=== PATIENT | male | born 1935 | race Caucasian/White ===

== ENCOUNTER 2023-06-18 10:29 | Emergency (ER) | payer OTHER, SELFPAY ==
[2023-06-18] VITALS (10 sets, daily range): BP systolic 138–160; BP diastolic 66–81; PULSE 87–97; RESP 18–34; TEMP 36.4; O2SAT 93–99; BMI 31.0
--- NOTE | 2023-06-18 11:05 | DI.RAD.S_ITS ---
PROCEDURE: XR CHEST 1V INDICATIONS: chest pain TECHNIQUE: One view of the chest was acquired. COMPARISON: None. FINDINGS: Surgical changes and devices: Left chest wall pacemaker. Lungs and pleura: Prominent interstitial markings. No pleural effusions or pneumothorax. Mediastinum: Mediastinal contours appear normal. Heart size is normal. Bones and chest wall: No suspicious bony lesions. Overlying soft tissues appear unremarkable. IMPRESSION: Prominent tissue markings may represent mild edema versus atypical infection, correlate with volume status. Dictated by: Rock Dye M.D. on 06/18/2023 at 11:57 Approved by: Rock Dye M.D. on 06/18/2023 at 11:58
--- NOTE | 2023-06-18 11:57 | ED.GENADULT ---
HPI - General Adult General Chief complaint: Dizziness Stated complaint: pace maker moniter problem Time Seen by Provider: 06/18/23 11:15 Source: patient Mode of arrival: Family Vehicle History of Present Illness HPI narrative: Patient here for evaluation of his pacemaker. He has no known no symptoms. . No trouble breathing no palpitations no chest pain no syncope. Patient does not know why he has a pacemaker. He does note it was placed 3 years ago. It is a [employer]tronic. He called the [place] nurse and was instructed to come here. He states the home monitor for his pacemaker has a green light. It is always green. However this morning he noticed it was orange. He has no no no symptoms. He was instructed to come here for evaluation. Related Data Allergies Allergy/AdvReac Type Severity Reaction Status Date / Time No Known Drug Allergies Allergy Verified 06/18/23 10:48 Review of Systems Review of Systems Narrative: GENERAL: negative chills, fatigue, malaise, fever, sweats. HEENT: negative sinus pain, ear pain, sore throat RESPIRATORY: negative dyspnea, cough CARDIOVASCULAR: negative chest pain, palpitations GASTROINTESTINAL: negative nausea, vomiting, abdominal pain : negative dysuria, frequency, hematuria MUSCULOSKELETAL: negative muscle or bony pain SKIN: negative rash, skin lesions NEUROLOGIC: negative weakness, numbness ROS Unobtainable: All systems reviewed & are unremarkable except as noted in HPI and below Patient History Social History Smoking Status: Former smoker Smoking Status: Former smoker tobacco type: cigarettes alcohol intake frequency: 0-2 drinks per day Substance Use Type: does not use Exam Narrative Exam Narrative: GENERAL: in no distress, not toxic not dyspneic HEAD: Normocephalic. EYES: Pupils equal round ENT: Mucous membranes moist. NECK: Trachea midline. CARDIOVASCULAR: Regular rate and rhythm RESPIRATORY: Clear to auscultation. Breath sounds equal bilaterally. No wheezes, rales, or rhonchi. GASTROINTESTINAL: Abdomen soft, non-tender EXTREMITIES: No gross deformities. BACK: No flank tenderness. NEURO: AOx4. Clear speech no facial droop SKIN: Warm and dry PSYCH: Not anxious, is cooperative Initial Vital Signs Initial Vital Signs: Vital Signs Temperature 97.5 F L 06/18/23 10:48 Pulse Rate 87 06/18/23 10:48 Respiratory Rate 18 06/18/23 10:48 Blood Pressure 138/70 06/18/23 10:48 Pulse Oximetry 99 06/18/23 10:48 Oxygen Delivery Method Room Air 06/18/23 10:48 Course Orders Ordered: Discontinued Medications Aspirin (Aspirin 81 Mg Chew Tab) 324 mg PO NOW ONE Stop: 06/18/23 11:06 Last Admin: 06/18/23 12:31 Dose: Not Given Documented By: DEXTER Vital Signs Vital signs: Vital Signs - 8 hr 06/18/23 10:48 06/18/23 11:00 06/18/23 11:01 Temperature 97.5 F L Pulse Rate 87 95 H 96 H Respiratory Rate 18 24 22 Blood Pressure 138/70 Pulse Oximetry 99 93 94 Oxygen Delivery Method Room Air 06/18/23 11:01 06/18/23 11:30 06/18/23 12:00 Temperature Pulse Rate 97 H 91 H Respiratory Rate 27 H 26 H Blood Pressure 138/80 Pulse Oximetry 94 94 Oxygen Delivery Method 06/18/23 12:01 06/18/23 12:01 06/18/23 12:30 Temperature Pulse Rate 91 H 95 H Respiratory Rate 26 H 34 H Blood Pressure 147/80 H Pulse Oximetry 94 Oxygen Delivery Method 06/18/23 12:30 06/18/23 13:00 06/18/23 13:01 Temperature Pulse Rate 91 H Respiratory Rate Blood Pressure 160/81 H 157/66 H Pulse Oximetry 94 Oxygen Delivery Method Room Air 06/18/23 13:01 Temperature Pulse Rate 91 H Respiratory Rate Blood Pressure Pulse Oximetry 93 Oxygen Delivery Method Room Air Medical Decision Making Lab Data 06/18/23 11:55 06/18/23 11:55 Labs: Lab Results 06/18/23 Range/Units 11:55 WBC 9.1 (4.5-11.0) X10^3/uL RBC 4.41 L (4.5-5.9) X10^6/uL Hgb 14.9 (13.5-17.5) g/dL Hct 43.2 (41-53) % MCV 98.0 (80-100) fL MCH 33.7 (26-34) PG MCHC 34.4 (30-36) % RDW 14.4 (11.6-14.8) % Plt Count 219 (150-400) X10^3/uL Neut % (Auto) 70.1 (50-75) % Lymph % (Auto) 15.8 L (25-40) % Allen % (Auto) 8.9 (3-14) % Eos % (Auto) 4.5 H (2-4) % Baso % (Auto) 0.7 (0-2) % Neut # (Auto) 6300 (3934-4711) /uL Lymph # (Auto) 1400 (1903-5376) /uL Allen # (Auto) 800 (0-900) /uL Eos # (Auto) 400 (0-450) /uL Baso # (Auto) 100 (0-100) /uL PT 12.5 (10.1-12.7) SECONDS INR 1.1 (0.9-1.3) APTT 30 (26-36) SECONDS Sodium 137 (137-145) mmol/L Potassium 4.3 (3.4-5.1) mmol/L Chloride 104 (98-107) mmol/L Carbon Dioxide 25 (22-32) mmol/L BUN 17 (9-20) mg/dL Creatinine 0.85 (0.66-1.25) mg/dL Estimated GFR > 60 (>60) mL/min BUN/Creatinine Ratio 20.0 (6-22) Glucose 101 (80-110) mg/dL Calcium 9.7 (8.4-10.2) mg/dL Magnesium 1.8 (1.6-2.3) mg/dL Total Bilirubin 0.9 (0.2-1.3) mg/dL AST 19 (17-59) IU/L ALT 14 (<50) IU/L Alkaline Phosphatase 58 (38-126) U/L Total Creatine Kinase 36 L (55-170) U/L Troponin I < 0.012 (0.01-0.034) ng/mL Total Protein 7.3 (6.3-8.2) g/dL Albumin 4.0 (3.5-5.0) g/dL Globulin 3.3 (1.7-4.1) g/dL Albumin/Globulin Ratio 1.2 (1.0-2.8) Lipase 26 (23-300) U/L Imaging Data Chest x-ray: Radiologist's Impression: [address] [address] XRay Report Signed Patient: Mario Farrell MR#: [id number] : 1935 Acct:[id number] Age/Sex: 87 / M Date of Service: 06/18/23 Loc: ED Accession Number: [id number] Procedure: XR chest 1V Ordering Provider: Hugo Gonzalez MD PROCEDURE: XR CHEST 1V INDICATIONS: chest pain TECHNIQUE: One view of the chest was acquired. COMPARISON: None. FINDINGS: Surgical changes and devices: Left chest wall pacemaker. Lungs and pleura: Prominent interstitial markings. No pleural effusions or pneumothorax. Mediastinum: Mediastinal contours appear normal. Heart size is normal. Bones and chest wall: No suspicious bony lesions. Overlying soft tissues appear unremarkable. IMPRESSION: Prominent tissue markings may represent mild edema versus atypical infection, correlate with volume status. Dictated by: Rock Dye M.D. on 06/18/2023 at 11:57 Approved by: Rock Dye M.D. on 06/18/2023 at 11:58 [facility] Narrative Medical decision making narrative: Patient here for evaluation of his pacemaker. He has no known no symptoms. . No trouble breathing no palpitations no chest pain no syncope. Patient does not know why he has a pacemaker. He does note it was placed 3 years ago. It is a [employer]. He called the [place] nurse and was instructed to come here. He states the home monitor for his pacemaker has a green light. It is always green. However this morning he noticed it was orange. He has no no no symptoms. He was instructed to come here for evaluation. After history and exam CBC CMP magnesium troponin EKG chest x-ray interrogation of the pacemaker MDM CC: Pacemaker evaluation Complicating co-morbidities: History of pacemaker Data collected from: Patient Medical records reviewed: No recent visit for this complaint, requesting records from [place] office visit within the last 1 year Differential considered: Includes but not limited to pacemaker malfunction Exam documented above, pertinent findings include: Regular rate and rhythm heart sounds Lab Test results independently reviewed as above. Pertinent findings: WBC 9.1 hemoglobin 14.9 INR 1.1 sodium 137 potassium 4.3 magnesium 1.8 troponin less than 0.012 Independently reviewed EKG atrial sensed ventricular paced Imaging studies independently reviewed: Chest x-ray no acute finding Consultations: 1:31 p.m.. I spoke with Katy, with [employer], she has reviewed patient's interrogation. It is functioning regularly. There are no abnormalities. Treatments: None indicated Re-evaluations: I have reviewed results with patient. He remains asymptomatic. I informed him he needs to get his monitor at home checked. There is a phone number on the side of the day he can call to make sure it is operating correctly. His pacemaker is working correctly. There were no irregular events. Return precautions reviewed with him. He desires discharge home Discussion: Pacemaker check is essentially why patient is here. He has no other symptoms. Appropriate for discharge home. Diagnosis: Pacemaker check Discharge Plan Departure Patient Disposition: Home Clinical Impression: Pacemaker reprogramming/check Activity Restrictions/Additional Instructions: Your exam and laboratory studies and interrogation of your pacemaker is reassuring. You need to check your monitor at home to see if it is working correctly. There is a phone number on the side of it for you to call to have it checked. Return if worse if any questions or concerns. Referrals: Miscellaneous,Doctor, MD [Primary Care Provider] - Stand Alone Forms: Patient Portal/API
[2023-06-18 12:06] LABS: Add Manual Diff / Slide Review NO; Basophils Absolute Auto 100 /uL (0-100); Basophils Percent Auto 0.7 % (0-2); Eosinophils Absolute Auto 400 /uL (0-450); Eosinophils Percent Auto 4.5 % (2-4); Hematocrit 43.2 % (41-53); Hemoglobin 14.9 g/dL (13.5-17.5); Lymphocytes Absolute Auto 1400 /uL (1100-4500); Lymphocytes Percent Auto 15.8 % (25-40); Mean Corpuscular HGB Conc 34.4 % (30-36); Mean Corpuscular Hemoglobin 33.7 PG (26-34); Monocytes Absolute Auto 800 /uL (0-900); Monocytes Percent Auto 8.9 % (3-14); Neutrophils Absolute Auto 6300 /uL (1500-7000); Neutrophils Percent Auto 70.1 % (50-75); Platelet Count 219 X10^3/uL (150-400); Red Blood Cell Count 4.41 X10^6/uL (4.5-5.9); Red Cell Distribution Width 14.4 % (11.6-14.8); White Blood Cell Count 9.1 X10^3/uL (4.5-11.0)
[2023-06-18 12:20] LABS: INR 1.1 (0.9-1.3); Prothrombin Time 12.5 SECONDS (10.1-12.7)
[2023-06-18 12:23] LABS: PTT Partial Thromboplastin Tim 30 SECONDS (26-36)
[2023-06-18 12:30] LABS: Alanine Aminotransferase 14 IU/L (<50); Albumin Globulin Ratio 1.2 (1.0-2.8); Alkaline Phosphatase 58 U/L (38-126); Aspartate Aminotransferase 19 IU/L (17-59); Bilirubin Total 0.9 mg/dL (0.2-1.3); Blood Urea Nitrogen 17 mg/dL (9-20); Calcium 9.7 mg/dL (8.4-10.2); Carbon Dioxide 25 mmol/L (22-32); Chloride 104 mmol/L (98-107); Creatine Kinase 36 U/L (55-170); Estimated Glomerular Filt Rate > 60 mL/min (>60); Globulin 3.3 g/dL (1.7-4.1); Glucose 101 mg/dL (80-110); HEMOLYSIS < 15 (0-50); Lipase 26 U/L (23-300); Magnesium 1.8 mg/dL (1.6-2.3); Potassium 4.3 mmol/L (3.4-5.1); Sodium 137 mmol/L (137-145); Total Protein 7.3 g/dL (6.3-8.2)
--- NOTE | 2023-06-18 12:37 | PC.NURSE ---
Patient reports his pacemaker light was orange, and it is usually green. Pt called and was told to go to the ER. Upon hearing this, patient became concerned and felt lightheaded briefly which he states was probably due to the phone call that told him to go to the ER. Pt denies dizziness, lightheaded, SOB, chest pain, weakness.
[2023-06-18 12:40] LABS: Troponin I < 0.012 ng/mL (0.01-0.034)
--- NOTE | 2023-06-18 12:50 | PC.NURSE ---
Medtronic interrogator successfully completed, waiting for report on fax.
== END 2023-06-18 14:05 | disposition home or self-care (01) ==
PROVIDERS: Emergency Provider Emergency Medicine
DX: Z45.018 Encounter for adjustment and management of other part of cardiac pacemaker (principal); R07.9 Chest pain, unspecified
CPT/HCPCS: 36415; 71045; 80053; 82550; 83690; 83735; 84484; 85025; 85610; 85730; 93005; 99283; 99284

== ENCOUNTER 2023-08-05 11:41 | Emergency (ER) | payer OTHER, SELFPAY ==
[2023-08-05 11:45] VITALS: BP 122/59; PULSE 60; RESP 18; TEMP 36.5; O2SAT 96; BMI 32.1
--- NOTE | 2023-08-05 12:32 | ED_ITS ---
HPI - Male Genitourinary <Aayush Chao PA-C - Last Filed: 08/05/23 13:50> General Chief complaint: Urogenital-Male Stated complaint: poss uti Time Seen by Provider: 08/05/23 12:02 Source: patient Mode of arrival: Ambulatory History of Present Illness HPI Narrative: 87-year-old male presents to the ED with a days of dysuria. Patient states he was seen in a urgent care clinic and prescribed cephalexin last week. Patient has completed that course with no relief from the dysuria. Patient denies fever, chills, nausea, vomiting, abdominal pain, lightheadedness, dizziness, syncope. Patient denies frequent UTIs. Patient denies urinary urgency, urinary frequency. Related Data Previous Rx's Medication Instructions Recorded cefpodoxime 200 mg tablet 200 mg PO Q12H 10 days #20 tabs 08/05/23 Allergies Allergy/AdvReac Type Severity Reaction Status Date / Time No Known Drug Allergies Allergy Verified 06/18/23 10:48 Review of Systems <Aayush Chao PA-C - Last Filed: 08/05/23 13:50> Constitutional Constitutional: Denies chills, Denies fatigue, Denies fever(s), Denies frequent falls, Denies lethargy and Denies weakness Eyes Eyes: Denies change in vision, Denies eye discharge, Denies irritation and Denies loss of vision ENT Ears, Nose, Mouth, and Throat: Denies change in voice, Denies dizziness, Denies neck pain, Denies sore throat and Denies throat swelling Cardiovascular Cardiovascular: Denies chest pain, Denies irregular heart rhythm, Denies light headedness, Denies palpitations, Denies dyspnea, Denies dyspnea on exertion and Denies orthopnea Respiratory Respiratory: Denies cough, Denies dyspnea, Denies dyspnea on exertion and Denies wheezing Gastrointestinal Gastrointestinal: Denies abdominal pain, Denies change in bowel habits, Denies diarrhea, Denies nausea and Denies vomiting Genitourinary Genitourinary: Reports dysuria Musculoskeletal Musculoskeletal: Denies neck pain and Denies numbness Integumentary/Breasts Skin/Breast: Denies pruritus, Denies erythema, Denies rash and Denies wounds Neurologic Neurologic: Denies behavioral changes, Denies confusion, Denies dizziness, Denies frequent falls, Denies loss of vision, Denies numbness and Denies weakness Psychiatric Psychiatric: Denies anxiety, Denies behavioral changes, Denies confusion, Denies depression, Denies homicidal ideation and Denies suicidal ideation Endocrine Endocrine: Denies fatigue, Denies flushing and Denies palpitations Hematologic/Lymphatic Hematologic/Lymphatic: Denies easy bruising Allergic/Immunologic Allergic/Immunologic: Denies urticaria, Denies throat swelling and Denies wheezing Patient History <Aayush Chao PA-C - Last Filed: 08/05/23 13:50> Social History Smoking Status: Former smoker Smoking Status: Former smoker tobacco type: cigarettes alcohol intake frequency: 0-2 drinks per day Substance Use Type: does not use Exam <Aayush Chao PA-C - Last Filed: 08/05/23 13:50> Narrative Exam Narrative: Const General:?cooperative, healthy appearing and comfortable HENMT Head:?normal to inspection Ears:?hearing grossly normal bilaterally Nose:?external nose normal Face and sinus:?normal facial exam and sinuses nontender Mouth:?oral mucosae normal Throat:?posterior oropharynx normal Eyes General:?appearance normal, both eyes and all related structures Neck Neck:?normal visual inspection and no lymphadenopathy noted Resp Effort & Inspection:?normal respiratory effort Auscultation:?clear to auscultation bilaterally Cardio Rate:?regular rate Rhythm:?regular rhythm GI Abdomen is soft, nondistended, nontender to palpation. There is no CVA tenderness. Neuro General:?patient alert, patient awake and patient oriented x3 Initial Vital Signs Initial Vital Signs: Vital Signs Temperature 97.7 F 08/05/23 11:45 Pulse Rate 60 08/05/23 11:45 Respiratory Rate 18 08/05/23 11:45 Blood Pressure 122/59 L 08/05/23 11:45 Pulse Oximetry 96 08/05/23 11:45 Oxygen Delivery Method Room Air 08/05/23 11:45 <Italia Brar DO - Last Filed: 08/10/23 07:33> Initial Vital Signs Initial Vital Signs: Vital Signs Temperature 97.7 F 08/05/23 11:45 Pulse Rate 60 08/05/23 11:45 Respiratory Rate 18 08/05/23 11:45 Blood Pressure 122/59 L 08/05/23 11:45 Pulse Oximetry 96 08/05/23 11:45 Oxygen Delivery Method Room Air 08/05/23 11:45 Course <Aayush Chao PA-C - Last Filed: 08/05/23 13:50> Orders Ordered: ED Orders 08/05/23 11:50 Urine Culture Stat Urine Microscopic Stat Vital Signs Vital signs: Vital Signs - 8 hr 08/05/23 11:45 08/05/23 13:30 Temperature 97.7 F 98.0 F Pulse Rate 60 61 Respiratory Rate 18 17 Blood Pressure 122/59 L 115/58 L Pulse Oximetry 96 96 Oxygen Delivery Method Room Air Room Air <Italia Brar DO - Last Filed: 08/10/23 07:33> Orders Ordered: ED Orders 08/05/23 11:50 Urine Culture Stat Urine Microscopic Stat Vital Signs Vital signs: Vital Signs - 8 hr 08/05/23 11:45 08/05/23 13:30 Temperature 97.7 F 98.0 F Pulse Rate 60 61 Respiratory Rate 18 17 Blood Pressure 122/59 L 115/58 L Pulse Oximetry 96 96 Oxygen Delivery Method Room Air Room Air MDM - Male Genitourinary <Aayush Chao PA-C - Last Filed: 08/05/23 13:50> Lab Data Labs: Lab Results 08/05/23 Range/Units 11:50 Urine RBC None seen (0-5/HPF) Urine WBC 1-5/hpf (0-5/HPF) Ur Squamous Epith Cells 1-5 /hpf (0-5/HPF) Urine Bacteria None seen (None) Ur Culture Indicated? Specimen cultured Urine Dip Bedside Urine Glucose Negative Bedside Urine Bilirubin - Negative Bedside Urine Ketone - Negative Urine Specific [place] 1.025 Bedside Urine Occult Blood - Negative Bedside Urine pH 6 Bedside Urine Protein - Negative Bedside Urine Urobilinogen - Negative Bedside Urine Nitrite - Negative Bedside Urine Leukocytes + 70 Esterase MDM Narrative Medical decision making narrative: 87-year-old male presents to the ED with a days of dysuria. Patient states he was seen in a urgent care clinic and prescribed cephalexin last week. Concern for UTI versus pyelonephritis versus other. Obtained UA which shows positive leukocyte esterase, negative WBCs, negative nitrites. Patient does not appear to be positive for UTI, however is very symptomatic. Discussed findings with patient. We agreed that he would trial cefpodoxime and follow-up with the uro logist as soon as possible. ED return precautions were discussed with patient. Patient verbalized understanding. Medical records reviewed: Yes <Italia Brar DO - Last Filed: 08/10/23 07:33> Lab Data Labs: Lab Results 08/05/23 Range/Units 11:50 Urine RBC None seen (0-5/HPF) Urine WBC 1-5/hpf (0-5/HPF) Ur Squamous Epith Cells 1-5 /hpf (0-5/HPF) Urine Bacteria None seen (None) Ur Culture Indicated? Specimen cultured Urine Dip Bedside Urine Glucose Negative Bedside Urine Bilirubin - Negative Bedside Urine Ketone - Negative Urine Specific [place] 1.025 Bedside Urine Occult Blood - Negative Bedside Urine pH 6 Bedside Urine Protein - Negative Bedside Urine Urobilinogen - Negative Bedside Urine Nitrite - Negative Bedside Urine Leukocytes + 70 Esterase Discharge Plan Departure Patient Disposition: Home Clinical Impression: Dysuria Instructions: DI for Dysuria -- Adult Activity Restrictions/Additional Instructions: You were evaluated in the ED today for pain with urination. Your urine and did not show a urinary tract infection, however since you are so symptomatic, you are being prescribed a different antibiotic. You may take the antibiotic as prescribed. Please follow-up with a urologist as soon as possible. Return to the ED if you have worsening symptoms, persistent vomiting, fever, chills. Prescriptions: New cefpodoxime 200 mg tablet 200 mg PO Q12H 10 Days Qty: 20 0RF Rx Instructions: must administer with a meal/food Referrals: [facility],DoctorMD [Primary Care Provider] - Stand Alone Forms: Patient Portal/API ED Sign-out <DO Kevin Mcneil Last Filed: 08/10/23 07:33> Cosign ED Attending Cosignature Attestation: I was available for consultation.
[2023-08-05 12:34] LABS: Bacteria Urine None Seen; RBC Urine None Seen (0-5/HPF); WBC Urine 1-5/HPF (0-5/HPF)
[2023-08-05 12:35] LABS: Culture Indicated Urine Specimen Cultured; Squamous Epithelial Cell Urine 1-5 /HPF (0-5/HPF)
[2023-08-05 13:30] VITALS: BP 115/58; PULSE 61; RESP 17; TEMP 36.7; O2SAT 96
== END 2023-08-05 13:43 | disposition home or self-care (01) ==
PROVIDERS: Emergency Provider Student in an Organized Health Care Education/Training Program
DX: R30.0 Dysuria (principal)
CPT/HCPCS: 51798; 81003; 81015; 87086; 99283

== ENCOUNTER 2023-12-21 19:16 | Emergency (ER) | payer OTHER, SELFPAY ==
[2023-12-21 19:18] VITALS: BP 134/81; PULSE 95; RESP 18; TEMP 36.6; O2SAT 95; BMI 33.3
--- NOTE | 2023-12-21 19:51 | ED.WOUNDLAC ---
HPI - Wound/Laceration General Chief Complaint: Wound/Laceration Stated Complaint: fall, arm laceration Time Seen by Provider: 12/21/23 19:18 Source: patient Mode of arrival: Ambulatory History of Present Illness HPI narrative: 88-year-old male presents for skin wound on his left forearm. Patient states that he was going into his trailer when the wind hit his screen door, slamming into him and causing him to trip forward, injuring his left forearm. States that he was up-to-date on his vaccination. He was here today for butterfly stitches of his skin tear. Related Data Allergies Allergy/AdvReac Type Severity Reaction Status Date / Time No Known Drug Allergies Allergy Verified 06/18/23 10:48 Review of Systems Review of Systems Narrative: See HPI Patient History Social History Smoking Status: Former smoker Smoking Status: Former smoker tobacco type: cigarettes alcohol intake frequency: 0-2 drinks per day Alcohol type: hard liquor Substance Use Type: does not use Exam Initial Vital Signs Initial Vital Signs: Vital Signs Temperature 97.9 F 12/21/23 19:18 Pulse Rate 95 H 12/21/23 19:18 Respiratory Rate 18 12/21/23 19:18 Blood Pressure 134/81 12/21/23 19:18 Pulse Oximetry 95 12/21/23 19:18 Oxygen Delivery Method Room Air 12/21/23 19:18 Const: Awake, alert, no acute distress, nontoxic appearing MSK: Atraumatic, full range of motion, pulses equal Skin: 3 cm oblique skin tear left dorsal forearm, no active bleeding Neuro: AO x3, CN II-XII grossly intact, moves all extremities Course Vital Signs Vital signs: Vital Signs - 8 hr 12/21/23 19:18 Temperature 97.9 F Pulse Rate 95 H Respiratory Rate 18 Blood Pressure 134/81 Pulse Oximetry 95 Oxygen Delivery Method Room Air MDM - Wound/Laceration MDM Narrative Medical decision making narrative: Well-appearing patient with accidental skin tear. He is up-to-date on his vaccinations. Wound irrigated by nursing staff, approximated with Steri-Strips and nonadherent bandage applied. Wound care instructions discussed with the patient at bedside. Discharge Plan Departure Patient Disposition: Home Clinical Impression: Avulsion of skin Instructions: DI for Avulsion Laceration (Not Requiring Sutures) Activity Restrictions/Additional Instructions: Keep your wound clean and dry. Wear the bandages, especially at night. Your skin will gradually heal with time. Follow up as needed with the primary care doctor. If you notice redness, drainage, or swelling please return for repeat evaluation. Referrals: Miscellaneous,Doctor, MD [Primary Care Provider] - Stand Alone Forms: Patient Portal/API
== END 2023-12-21 20:30 | disposition home or self-care (01) ==
PROVIDERS: Emergency Provider Emergency Medicine
DX: S51.812A Laceration without foreign body of left forearm, initial encounter (principal); W22.8XXA Striking against or struck by other objects, initial encounter
CPT/HCPCS: 99281

== ENCOUNTER 2024-05-06 18:28 | Emergency (ER) | payer OTHER, SELFPAY ==
[2024-05-06] VITALS (8 sets, daily range): BP systolic 92–110; BP diastolic 67–70; PULSE 66–103; RESP 18–29; TEMP 36.7; O2SAT 91–95; BMI 32.3
--- NOTE | 2024-05-06 18:41 | DI.RAD.S_ITS ---
PROCEDURE: XR CHEST 1V INDICATIONS: chest pain TECHNIQUE: One view of the chest was acquired. COMPARISON: [facility], CR, XR CHEST 1V, 06/18/2023, 11:24. FINDINGS: Surgical changes and devices: Left pacemaker with right atrial and right ventricular leads. Lungs and pleura: Bilateral patchy airspace opacity, overall similar. No pleural effusions or pneumothorax. Mediastinum: Mediastinal contours appear normal. Heart size is prominent. Bones and chest wall: No suspicious bony lesions. Overlying soft tissues appear unremarkable. IMPRESSION: Bilateral patchy airspace opacity is similar. This could be due to pulmonary edema or infectious/inflammatory etiology. Dictated by: Dewayne Melendez M.D. on 05/06/2024 at 19:05 Approved by: Dewayne Melendez M.D. on 05/06/2024 at 19:06
--- NOTE | 2024-05-06 18:44 | EKG_ITS ---
[address] [address] Test Date: 2024-05-06 Pat Name: Mario Farrell Department: Room: Gender: Male Epic Ambulatory Analyst: DONNY : 1935 Requested By: Order Number: [id number] Reading MD: Castillo De MD Measurements Intervals Clark Rate: 77 P: 49 PA: 178 QRS: -74 QRSD: 162 T: 91 QT: 416 QTc: 470 Interpretive Statements Atrial-sensed ventricular-paced rhythm Electronically Signed On 05-09-2024 7:51:33 PDT by Castillo De MD
[2024-05-06 18:52] LABS: Add Manual Diff / Slide Review NO; Basophils Absolute Auto 100 /uL (0-100); Basophils Percent Auto 0.7 % (0-2); Eosinophils Absolute Auto 400 /uL (0-450); Eosinophils Percent Auto 3.2 % (2-4); Hematocrit 47.1 % (41-53); Hemoglobin 15.8 g/dL (13.5-17.5); Lymphocytes Absolute Auto 1500 /uL (1100-4500); Mean Corpuscular HGB Conc 33.5 % (30-36); Mean Corpuscular Hemoglobin 33.5 PG (26-34); Monocytes Absolute Auto 900 /uL (0-900); Monocytes Percent Auto 7.6 % (3-14); Neutrophils Absolute Auto 9300 /uL (1500-7000); Neutrophils Percent Auto 76.5 % (50-75); Platelet Count 197 X10^3/uL (150-400); Red Blood Cell Count 4.71 X10^6/uL (4.5-5.9); Red Cell Distribution Width 14.3 % (11.6-14.8); White Blood Cell Count 12.1 X10^3/uL (4.5-11.0)
[2024-05-06 18:58] LABS: INR 1.1 (0.9-1.3); Prothrombin Time 12.5 SECONDS (9.4-12.5)
[2024-05-06 19:01] LABS: PTT Partial Thromboplastin Tim 33 SECONDS (25.1-36.5)
[2024-05-06 19:03] LABS: Alanine Aminotransferase 12 IU/L (<50); Albumin Globulin Ratio 1.3 (1.0-2.8); Alkaline Phosphatase 64 U/L (38-126); Aspartate Aminotransferase 18 IU/L (17-59); BUN Creatinine Ratio 17.8 (6-22); Bilirubin Total 0.7 mg/dL (0.2-1.3); Blood Urea Nitrogen 19 mg/dL (9-20); Calcium 9.3 mg/dL (8.4-10.2); Carbon Dioxide 20 mmol/L (22-32); Chloride 109 mmol/L (98-107); Creatine Kinase 34 U/L (55-170); Estimated Glomerular Filt Rate > 60 mL/min (>60); Globulin 3.1 g/dL (1.7-4.1); Glucose 115 mg/dL (80-110); HEMOLYSIS < 15 (0-50); Lipase 127 U/L (23-300); Magnesium 1.7 mg/dL (1.6-2.3); Potassium 4.3 mmol/L (3.4-5.1); Sodium 137 mmol/L (137-145); Total Protein 7.1 g/dL (6.3-8.2)
[2024-05-06 19:14] LABS: NT-proBNP (BNP-Adult 18+) 218 pg/mL (<450); Troponin I < 0.012 ng/mL (0.01-0.034)
--- NOTE | 2024-05-06 19:33 | ED_ITS ---
HPI - General Adult General Chief complaint: Dizziness Stated complaint: low bp, feet swelling, dizziness Time Seen by Provider: 05/06/24 18:50 Source: patient Mode of arrival: Ambulatory Limitations: no limitations History of Present Illness HPI narrative: Patient is an 88-year-old male. No history of heart failure. Is on anticoagulation. Has a pacemaker in place secondary to AFib. States that earlier today he noticed that his legs were swelling. He does have history of COPD. Is at his baseline respiratory status. He does have dyspnea on exertion but nothing has changed over the past several weeks. No fevers. No chest pain. Does not feel like his abdomen is swollen. Does not feel like his arms are swollen. No cough over his baseline. He does not have orthopnea. He stated that he contacted his primary doctor's office because of the lower extremity swelling. He was told to take his blood pressure. He found at home that is systolic blood pressure was in the 90s. He states that at baseline his systolic blood pressure is 110-115. He did say that he was feeling somewhat lightheaded but not at the time of my evaluation. Related Data Previous Rx's Medication Instructions Recorded furosemide 20 mg tablet (Lasix) 20 mg PO DAILY PRN edema #20 tabs 05/06/24 Allergies Allergy/AdvReac Type Severity Reaction Status Date / Time No Known Drug Allergies Allergy Verified 06/18/23 10:48 Review of Systems Review of Systems ROS Unobtainable: All systems reviewed & are unremarkable except as noted in HPI and below Patient History Social History Smoking Status: Former smoker Smoking Status: Former smoker tobacco type: cigarettes alcohol intake frequency: 0-2 drinks per day Alcohol type: hard liquor Substance Use Type: does not use Exam Initial Vital Signs Initial Vital Signs: Vital Signs Pulse Rate 83 05/06/24 18:33 Pulse Oximetry 95 05/06/24 18:33 Const General: cooperative and No ill appearing [facility] Head: normal to inspection Resp Effort & Inspection: normal respiratory effort, no cough and tachypneic Auscultation: clear to auscultation bilaterally, no rhonchi and no wheezes Cardio Rate: regular rate Skin General: no rashes or lesions noted Extrem General: edema Course Orders Ordered: ED Orders 05/06/24 18:40 Complete Blood Count AUTO DIFF Stat Comprehensive Metabolic Panel Stat Lipase Stat Magnesium Stat NT-proBNP (BNP-Adult 18+) Stat PTT Partial Thromboplastin Wes Stat Prothrombin Time INR Stat Troponin & CK Cardiac Panel Stat 05/06/24 18:41 XR chest 1V Stat EKG-12 Lead Stat Discontinued Medications Aspirin (Aspirin 81 Mg Chew Tab) 324 mg PO NOW ONE Stop: 05/06/24 18:42 Last Admin: 05/06/24 19:45 Dose: Not Given Documented By: KARLEY Vital Signs Vital signs: Vital Signs - 8 hr 05/06/24 18:33 05/06/24 18:35 05/06/24 18:35 Temperature Pulse Rate 83 68 Respiratory Rate Blood Pressure 100/70 Pulse Oximetry 95 94 Oxygen Delivery Method Room Air 05/06/24 18:38 05/06/24 19:00 05/06/24 19:30 Temperature 98.1 F Pulse Rate 103 H 76 72 Respiratory Rate 20 29 H 20 Blood Pressure 100/70 Pulse Oximetry 94 94 93 Oxygen Delivery Method Room Air 05/06/24 19:31 05/06/24 19:31 05/06/24 19:36 Temperature Pulse Rate 82 66 Respiratory Rate 18 18 Blood Pressure 92/68 Pulse Oximetry 93 91 Oxygen Delivery Method 05/06/24 19:36 05/06/24 20:00 Temperature Pulse Rate 66 Respiratory Rate 21 Blood Pressure 110/67 Pulse Oximetry 92 Oxygen Delivery Method Medical Decision Making Lab Data Lab results reviewed: Yes I reviewed the patient's lab results. 05/06/24 18:40 05/06/24 18:40 Labs: Lab Results 05/06/24 Range/Units 18:40 WBC 12.1 H (4.5-11.0) X10^3/uL RBC 4.71 (4.5-5.9) X10^6/uL Hgb 15.8 (13.5-17.5) g/dL Hct 47.1 (41-53) % MCV 100.0 (80-100) fL MCH 33.5 (26-34) PG MCHC 33.5 (30-36) % RDW 14.3 (11.6-14.8) % Plt Count 197 (150-400) X10^3/uL Neut % (Auto) 76.5 H (50-75) % Lymph % (Auto) 12.0 L (25-40) % [place] % (Auto) 7.6 (3-14) % Eos % (Auto) 3.2 (2-4) % Baso % (Auto) 0.7 (0-2) % Neut # (Auto) 9300 H (3861-7010) /uL Lymph # (Auto) 1500 (3152-5330) /uL [place] # (Auto) 900 (0-900) /uL Eos # (Auto) 400 (0-450) /uL Baso # (Auto) 100 (0-100) /uL PT 12.5 (9.4-12.5) SECONDS INR 1.1 (0.9-1.3) APTT 33 (25.1-36.5) SECONDS Sodium 137 (137-145) mmol/L Potassium 4.3 (3.4-5.1) mmol/L Chloride 109 H (98-107) mmol/L Carbon Dioxide 20 L (22-32) mmol/L BUN 19 (9-20) mg/dL Creatinine 1.07 (0.66-1.25) mg/dL Estimated GFR > 60 (>60) mL/min BUN/Creatinine Ratio 17.8 (6-22) Glucose 115 H (80-110) mg/dL Calcium 9.3 (8.4-10.2) mg/dL Magnesium 1.7 (1.6-2.3) mg/dL Total Bilirubin 0.7 (0.2-1.3) mg/dL AST 18 (17-59) IU/L ALT 12 (<50) IU/L Alkaline Phosphatase 64 (38-126) U/L Total Creatine Kinase 34 L (55-170) U/L Troponin I < 0.012 (0.01-0.034) ng/mL NT-Pro-B Natriuret Pep 218 (<450) pg/mL Total Protein 7.1 (6.3-8.2) g/dL Albumin 4.0 (3.5-5.0) g/dL Globulin 3.1 (1.7-4.1) g/dL Albumin/Globulin Ratio 1.3 (1.0-2.8) Lipase 127 (23-300) U/L Imaging Data Chest x-ray: Radiologist's Impression: PROCEDURE: XR CHEST 1V INDICATIONS: chest pain TECHNIQUE: One view of the chest was acquired. COMPARISON: [facility], CR, XR CHEST 1V, 06/18/2023, 11:24. FINDINGS: Surgical changes and devices: Left pacemaker with right atrial and right ventricular leads. Lungs and pleura: Bilateral patchy airspace opacity, overall similar. No pleural effusions or pneumothorax. Mediastinum: Mediastinal contours appear normal. Heart size is prominent. Bones and chest wall: No suspicious bony lesions. Overlying soft tissues appear unremarkable. IMPRESSION: Bilateral patchy airspace opacity is similar. This could be due to pulmonary edema or infectious/inflammatory etiology. ECG Data Attestation: I personally reviewed and interpreted this ECG as follows: Interpretation: Ventricularly paced Rate is 77 MDM Narrative Medical decision making narrative: He does have 1 to 2+ pitting edema bilateral lower extremities that involves mostly his ankles up to mid calf. He states he was at his baseline respiratory status. Chest x-ray has some findings that maybe consistent with an infection however clinically he does not have pneumonia. No leukocytosis. No change in cough over baseline. No orthopnea. Not hypoxic. Blood pressure improved here in the ER to what he states is his baseline with a systolic blood pressure around 115. He ambulate around the emergency department at baseline. Plan will be to start him on Lasix. We discussed how he can take this as needed depending on his lower extremity edema. He was not in overt heart failure. There was no indication for admission to the hospital or IV diuresis. He was given specific return precautions. He expressed understanding and agreement with the plan. Discharge Plan Departure Patient Disposition: Home Clinical Impression: Peripheral edema Instructions: DI for Peripheral Edema -- Bilateral Activity Restrictions/Additional Instructions: A prescription for medication called furosemide/Lasix was sent to [facility]. Your request. You can take this medication 1 time a day as needed for swelling in your legs. You do need follow-up with a bag end sewer and also your primary doctor. Return to the emergency department for new or worsening symptoms. You can contact [phone] to help establish a primary doctor here in the local area. Prescriptions: New furosemide [Lasix] 20 mg tablet 20 mg PO DAILY PRN (Reason: edema) Qty: 20 0RF Referrals: Miscellaneous,Doctor, [Primary Care Provider] - Stand Alone Forms: Patient Portal/API
== END 2024-05-06 20:32 | disposition home or self-care (01) ==
PROVIDERS: Emergency Provider Emergency Medicine
DX: R60.0 Localized edema (principal); R07.9 Chest pain, unspecified; I48.91 Unspecified atrial fibrillation; Z79.01 Long term (current) use of anticoagulants; Z95.0 Presence of cardiac pacemaker; J44.9 Chronic obstructive pulmonary disease, unspecified
CPT/HCPCS: 36415; 71045; 80053; 82550; 83690; 83735; 83880; 84484; 85025; 85610; 85730; 93005; 93010; 99283; 99284

== ENCOUNTER 2024-06-09 11:42 | Emergency (ER) | payer OTHER, SELFPAY ==
[2024-06-09 11:52] VITALS: BP 113/65; PULSE 79; RESP 24; TEMP 36.4; O2SAT 93; BMI 33.6
--- NOTE | 2024-06-09 11:57 | DI.RAD.S_ITS ---
PROCEDURE: XR CHEST 1V INDICATIONS: Shortness of breath TECHNIQUE: One view of the chest was acquired. COMPARISON: [facility], IVAN, XR CHEST 1V, 05/06/2024, 18:44. [facility], CR, XR CHEST 1V, 06/18/2023, 11:24. FINDINGS: Surgical changes and devices: Left chest wall generator with cardiac leads. Lungs and pleura: Patchy left-sided airspace opacities. Mediastinum: Mediastinal contours appear normal. Heart size is normal. Bones and chest wall: No suspicious bony lesions. Overlying soft tissues appear unremarkable. IMPRESSION: Patchy left-sided airspace opacities, could represent atelectasis or atypical infection. Dictated by: Joshua Parikh M.D. on 06/09/2024 at 12:44 Approved by: Joshua Parikh M.D. on 06/09/2024 at 12:48
--- NOTE | 2024-06-09 12:12 | EKG_ITS ---
[address] [address] Test Date: 2024-06-09 Pat Name: Mario Farrell Department: [facility] Room: Gender: Male Dials Supervisor: JOVI : [id number] Requested By: Order Number: [id number] Reading MD: Sky Farrell Measurements Intervals [place] Rate: 65 P: 63 [place]: QRS: -74 QRSD: 166 T: 94 QT: 432 QTc: 449 Interpretive Statements Ventricular-paced rhythm Electronically Signed On 06-09-2024 17:09:53 PDT by Sky Farrell
[2024-06-09 12:17] LABS: Add Manual Diff / Slide Review NO; Basophils Absolute Auto 100 /uL (0-100); Basophils Percent Auto 0.9 % (0-2); Eosinophils Absolute Auto 400 /uL (0-450); Eosinophils Percent Auto 4.4 % (2-4); Hematocrit 46.4 % (41-53); Hemoglobin 15.7 g/dL (13.5-17.5); Lymphocytes Absolute Auto 1400 /uL (1100-4500); Lymphocytes Percent Auto 17.2 % (25-40); Mean Corpuscular HGB Conc 33.8 % (30-36); Mean Corpuscular Hemoglobin 33.5 PG (26-34); Mean Corpuscular Volume 99.1 fL (80-100); Monocytes Absolute Auto 700 /uL (0-900); Monocytes Percent Auto 8.4 % (3-14); Neutrophils Absolute Auto 5600 /uL (1500-7000); Neutrophils Percent Auto 69.1 % (50-75); Platelet Count 212 X10^3/uL (150-400); Red Blood Cell Count 4.68 X10^6/uL (4.5-5.9); Red Cell Distribution Width 13.9 % (11.6-14.8); White Blood Cell Count 8.1 X10^3/uL (4.5-11.0)
[2024-06-09 12:24] LABS: INR 1.1 (0.9-1.3); Prothrombin Time 12.4 SECONDS (9.4-12.5)
[2024-06-09 12:28] VITALS: PULSE 67; RESP 24; O2SAT 95
[2024-06-09 12:30] VITALS: PULSE 85; RESP 29; O2SAT 94
[2024-06-09 12:32] LABS: Alanine Aminotransferase 17 IU/L (<50); Albumin Globulin Ratio 1.3 (1.0-2.8); Alkaline Phosphatase 56 U/L (38-126); Aspartate Aminotransferase 23 IU/L (17-59); BUN Creatinine Ratio 17.9 (6-22); Bilirubin Total 0.9 mg/dL (0.2-1.3); Blood Urea Nitrogen 19 mg/dL (9-20); Calcium 9.7 mg/dL (8.4-10.2); Carbon Dioxide 25 mmol/L (22-32); Chloride 106 mmol/L (98-107); Estimated Glomerular Filt Rate > 60 mL/min (>60); Globulin 3.2 g/dL (1.7-4.1); Glucose 126 mg/dL (80-110); HEMOLYSIS < 15 (0-50); Potassium 4.3 mmol/L (3.4-5.1); Sodium 137 mmol/L (137-145); Total Protein 7.2 g/dL (6.3-8.2)
[2024-06-09 12:33] LABS: Lactate (Lactic Acid) 1.4 mmol/L (0.7-2.1)
[2024-06-09 12:43] LABS: NT-proBNP (BNP-Adult 18+) 138 pg/mL (<450); Troponin I < 0.012 ng/mL (0.01-0.034)
[2024-06-09 13:00] VITALS: BP 96/61; PULSE 64; RESP 21; O2SAT 94
[2024-06-09 13:30] VITALS: BP 91/61; PULSE 65; RESP 20; O2SAT 93
--- NOTE | 2024-06-09 13:41 | ED_ITS ---
HPI - General Adult General Chief complaint: Shortness of Breath/Dyspnea Stated complaint: cough, swelling on both feet Time Seen by Provider: 06/09/24 13:40 Source: patient Mode of arrival: Ambulatory History of Present Illness HPI narrative: 88-year-old gentleman comes in complaining of peripheral edema seen in the ER on May 06 the same. He has a history of pacemaker for atrial fibrillation, he is anticoagulated, there is no history of congestive heart failure. He states he has had a cough for about a month despite all of the cough medicines that he is tried. Does not describe shortness of breath, orthopnea or dyspnea. Shortly after labs are drawn he insists that it is time to go home. He apologizes for being ?cranky old man ?but notes that his is old too. He has not describing fevers or chills Related Data Previous Rx's Medication Instructions Recorded furosemide 20 mg tablet (Lasix) 20 mg PO DAILY PRN edema #20 tabs 05/06/24 doxycycline hyclate 100 mg capsule 100 mg PO BID #20 caps 06/09/24 Allergies Allergy/AdvReac Type Severity Reaction Status Date / Time No Known Drug Allergies Allergy Verified 06/18/23 10:48 Review of Systems Review of Systems Narrative: Pertinent positive and negative findings as per HPI Patient History Medical History (Updated 06/09/24 @ 13:45 by Elle Pelletier MD) Anticoagulated Pacemaker Social History Smoking Status: Former smoker Smoking Status: Former smoker tobacco type: cigarettes alcohol intake frequency: 0-2 drinks per day Alcohol type: hard liquor Substance Use Type: does not use Exam Initial Vital Signs Initial Vital Signs: Vital Signs Temperature 97.6 F 06/09/24 11:52 Pulse Rate 79 06/09/24 11:52 Respiratory Rate 24 06/09/24 11:52 Blood Pressure 113/65 06/09/24 11:52 Pulse Oximetry 93 06/09/24 11:52 Oxygen Delivery Method Room Air 06/09/24 11:52 General: Cantankerous, cough, no acute distress able to speaking complete sentences HEENT: Moist mucous membranes, normal sclera with reactive pupils, Neck: No JVD, Respiratory: Lungs with rhonchi throughout right lung leone, no wheezing Cardiac: Regular rate and rhythm no murmurs no bruits Abdomen: Soft, nontender, good bowel tones, no flank pain Skin: Warm and dry, no rashes Neurologic: Grossly neurologically intact with no obvious asymmetries or abnormalities Extremities: No trauma, minimal lower extremity edema Psych: Fluent speech process Course Orders Ordered: ED Orders 06/09/24 11:57 XR chest 1V Stat EKG-12 Lead Stat Measure peak expiratory flow ONCE RT Consult Eval and Treat NOW 06/09/24 12:10 Complete Blood Count AUTO DIFF Stat Comprehensive Metabolic Panel Stat Lactate (Lactic Acid) Stat NT-proBNP (BNP-Adult 18+) Stat Prothrombin Time INR Stat Troponin I Stat Vital Signs Vital signs: Vital Signs - 8 hr 06/09/24 11:52 06/09/24 12:28 06/09/24 12:30 Temperature 97.6 F Pulse Rate 79 67 85 Respiratory Rate 24 24 29 H Blood Pressure 113/65 Pulse Oximetry 93 95 94 Oxygen Delivery Method Room Air 06/09/24 13:00 06/09/24 13:00 06/09/24 13:30 Temperature Pulse Rate 64 Respiratory Rate 21 Blood Pressure 96/61 91/61 Pulse Oximetry 94 Oxygen Delivery Method 06/09/24 13:30 Temperature Pulse Rate 65 Respiratory Rate 20 Blood Pressure Pulse Oximetry 93 Oxygen Delivery Method Medical Decision Making Lab Data 06/09/24 12:10 06/09/24 12:10 Labs: Lab Results 06/09/24 Range/Units 12:10 WBC 8.1 (4.5-11.0) X10^3/uL RBC 4.68 (4.5-5.9) X10^6/uL Hgb 15.7 (13.5-17.5) g/dL Hct 46.4 (41-53) % MCV 99.1 (80-100) fL MCH 33.5 (26-34) PG MCHC 33.8 (30-36) % RDW 13.9 (11.6-14.8) % Plt Count 212 (150-400) X10^3/uL Neut % (Auto) 69.1 (50-75) % Lymph % (Auto) 17.2 L (25-40) % [place] % (Auto) 8.4 (3-14) % Eos % (Auto) 4.4 H (2-4) % Baso % (Auto) 0.9 (0-2) % Neut # (Auto) 5600 (9052-4226) /uL Lymph # (Auto) 1400 (5619-9292) /uL [place] # (Auto) 700 (0-900) /uL Eos # (Auto) 400 (0-450) /uL Baso # (Auto) 100 (0-100) /uL PT 12.4 (9.4-12.5) SECONDS INR 1.1 (0.9-1.3) Sodium 137 (137-145) mmol/L Potassium 4.3 (3.4-5.1) mmol/L Chloride 106 (98-107) mmol/L Carbon Dioxide 25 (22-32) mmol/L BUN 19 (9-20) mg/dL Creatinine 1.06 (0.66-1.25) mg/dL Estimated GFR > 60 (>60) mL/min BUN/Creatinine Ratio 17.9 (6-22) Glucose 126 H (80-110) mg/dL Lactate 1.4 (0.7-2.1) mmol/L Calcium 9.7 (8.4-10.2) mg/dL Total Bilirubin 0.9 (0.2-1.3) mg/dL AST 23 (17-59) IU/L ALT 17 (<50) IU/L Alkaline Phosphatase 56 (38-126) U/L Troponin I < 0.012 (0.01-0.034) ng/mL NT-Pro-B Natriuret Pep 138 (<450) pg/mL Total Protein 7.2 (6.3-8.2) g/dL Albumin 4.0 (3.5-5.0) g/dL Globulin 3.2 (1.7-4.1) g/dL Albumin/Globulin Ratio 1.3 (1.0-2.8) MDM Narrative Medical decision making narrative: 88-year-old gentleman presents complaining of lower extremity edema Has a history of a pacemaker anticoagulated for chronic atrial fibrillation Information gathered from the patient, it sounds like there is a degree of dementia in his and he is concerned about getting home quickly to care for her On exam there was no respiratory distress, he is rhonchi throughout his right lungs, he has not hypoxic he is minimal lower extremity edema EKGs entirely paced at a rate of 60 X-ray suggests patchy left-sided airspace opacities, clearly no dramatic consolidated findings Labs do not suggest significant leukocytosis, acute coronary syndrome, congestive heart failure or dramatic anemia. There was no evidence of sepsis Recommended oral doxycycline. Clinical exam he has a right-sided pneumonia perhaps bilateral given the chest x-ray. He is alert, not hypoxic able to drive himself and safe for discharge home. Discharge Plan Departure Patient Disposition: Home Clinical Impression: Community acquired pneumonia Qualifiers: Laterality: right Lung location: unspecified part of lung Qualified Code(s): J 18.9 - Pneumonia, unspecified organism Instructions: DI for Pneumonia -- Adult Activity Restrictions/Additional Instructions: Based on your cough, clinical exam and chest x-ray today you have developed a pneumonia in the right side of your lung There are no signs of sepsis, heart failure or heart attack. Prescription for doxycycline has been electronically transmitted to [facility] in [place]. Please mixing picker tender the prescription and start it today. If you find that you are getting worse or develop any new symptoms, please feel free to return to the emergency department for further evaluation. Prescriptions: New doxycycline hyclate 100 mg capsule 100 mg PO BID Qty: 20 0RF No Action furosemide [Lasix] 20 mg tablet 20 mg PO DAILY PRN (Reason: edema) Qty: 20 0RF Referrals: Miscellaneous,Doctor, MD [Primary Care Provider] - Stand Alone Forms: Patient Portal/API/Survey
== END 2024-06-09 13:52 | disposition home or self-care (01) ==
PROVIDERS: Emergency Provider Emergency Medicine
DX: J18.9 Pneumonia, unspecified organism (principal); R60.0 Localized edema; R06.02 Shortness of breath; Z79.01 Long term (current) use of anticoagulants; Z95.0 Presence of cardiac pacemaker
CPT/HCPCS: 36415; 71045; 80053; 83605; 83880; 84484; 85025; 85610; 93005; 99284

== ENCOUNTER 2024-08-04 06:59 | Emergency (ER) | payer OTHER, SELFPAY ==
[2024-08-04] VITALS (12 sets, daily range): BP systolic 92–136; BP diastolic 67–84; PULSE 84–104; RESP 19–25; TEMP 36.6–36.7; O2SAT 91–96; BMI 34.3
--- NOTE | 2024-08-04 07:15 | ED.GENADULT ---
HPI - General Adult General Chief complaint: Upper Respiratory Symptoms Stated complaint: Cough and vomiting Time Seen by Provider: 08/04/24 07:13 History of Present Illness HPI narrative: 88-year-old gentleman with a history of atrial fibrillation for has a pacemaker but states he has no longer anticoagulated, COPD for which he uses an inhaler morning and night not certain of which medication that might be,, chronic lower extremity edema without a diagnosis of congestive heart failure, hyperlipidemia, GERD who comes in complaining increasing cough wheeze, vomiting overnight describes it as dark but not overtly bloody. No prior history of GI bleeding. States that the nausea seems to have resolved but the cough, chronic lower extremity edema and wheezing continues to bother him. He does not describe fevers, abdominal pain, palpitations, orthopnea, headache. Related Data Previous Rx's Medication Instructions Recorded furosemide 20 mg tablet (Lasix) 20 mg PO DAILY PRN edema #20 tabs 05/06/24 doxycycline hyclate 100 mg capsule 100 mg PO BID #20 caps 06/09/24 amoxicillin 500 mg capsule 500 mg PO TID #30 caps 08/04/24 doxycycline hyclate 100 mg capsule 100 mg PO BID #20 caps 08/04/24 ipratropium 0.5 mg-albuterol 3 mg 3 ml inhalation Q6H PRN shortness 08/04/24 (2.5 mg base)/3 mL nebulization of breath or wheezing #180 mL soln nebulizer accessories #1 ea 08/04/24 nebulizer and compressor #1 ea 08/04/24 prednisone 20 mg tablet 40 mg (2 x 20 mg) PO DAILY #10 tabs 08/04/24 Allergies Allergy/AdvReac Type Severity Reaction Status Date / Time No Known Drug Allergies Allergy Verified 06/18/23 10:48 Review of Systems Review of Systems Narrative: Pertinent positive and negative findings as per HPI Patient History Medical History (Updated 08/04/24 @ 10:13 by Elle Pelletier MD) Interstitial lung disease COPD (chronic obstructive pulmonary disease) Bilateral edema of lower extremity Chronic atrial fibrillation Anticoagulated Pacemaker Social History Smoking Status: Former smoker Smoking Status: Former smoker tobacco type: cigarettes alcohol intake frequency: 0-2 drinks per day Alcohol type: hard liquor Exam Initial Vital Signs Initial Vital Signs: Vital Signs Pulse Rate 104 H 08/04/24 07:10 Blood Pressure 136/84 08/04/24 07:10 Pulse Oximetry 94 08/04/24 07:10 General: Alert, audible wheeze, mild nonproductive cough able to speak in complete sentences HEENT: Moist mucous membranes, normal sclera with reactive pupils, Neck: No JVD, supple Respiratory: Lungs with significant wheeze through all lung leone rhonchi in lower lung leone no obvious crackles or appreciated with overriding wheeze Cardiac: Regular but tachycardic, no murmurs appreciated Abdomen: Soft, nontender, good bowel tones, no flank pain Skin: Warm and dry, no rashes Neurologic: Grossly neurologically intact with no obvious asymmetries or abnormalities Extremities: No trauma, well perfused, 1+ bilateral lower extremity edema without chronic venous stasis changes Psych: Cooperative, appropriate insight and affect Course Orders Ordered: Discontinued Medications Albuterol/Ipratropium (Albuterol/Ipratropium 3 Ml Ampul) 3 ml INH NOW ONE Stop: 08/04/24 07:29 Last Admin: 08/04/24 07:59 Dose: 3 ml Documented By: PETR Albuterol/Ipratropium (Albuterol/Ipratropium 3 Ml Ampul) 3 ml INH NOW ONE Stop: 08/04/24 10:15 Last Admin: 08/04/24 10:41 Dose: 3 ml Documented By: PETR Amoxicillin (Amoxicillin 250 Mg Capsule) 500 mg PO NOW ONE Stop: 08/04/24 10:15 Last Admin: 08/04/24 10:36 Dose: 500 mg Documented By: REBECCA Amoxicillin (Amoxicillin 250 Mg Capsule) 500 mg PO NOW ONE Stop: 08/04/24 10:46 Last Admin: 08/04/24 10:37 Dose: Not Given Documented By: REBECCA Doxycycline Hyclate (Doxycycline Hyclate 100 Mg Tablet) 100 mg PO NOW ONE Stop: 08/04/24 10:15 Last Admin: 08/04/24 10:36 Dose: 100 mg Documented By: REBECCA Sodium Chloride (Normal Saline 0.9%) 1,000 mls @ 1,000 mls/hr IV BOLUS ONE Stop: 08/04/24 08:27 Last Infusion: 08/04/24 11:07 Dose: 0 mls/hr Documented By: Infusion: 08/04/24 08:36 Dose: 0 mls/hr Documented By: Admin: 08/04/24 07:46 Dose: 1,000 mls/hr Documented By: ORTIZ Methylprednisolone (Methylprednisolone 125 Mg/2 Ml Vial) 125 mg IV NOW ONE Stop: 08/04/24 07:29 Last Admin: 08/04/24 07:47 Dose: 125 mg Documented By: ORTIZ Vital Signs Vital signs: Vital Signs - 8 hr 08/04/24 10:30 08/04/24 10:30 08/04/24 10:37 Temperature 98.0 F Pulse Rate 100 H 100 H Respiratory Rate 20 Blood Pressure 92/67 Pulse Oximetry 95 Oxygen Delivery Method Room Air 08/04/24 10:37 08/04/24 10:41 Temperature Pulse Rate 104 H Respiratory Rate 24 Blood Pressure 136/78 Pulse Oximetry 95 Oxygen Delivery Method Room Air Medical Decision Making Lab Data 08/04/24 07:38 08/04/24 07:38 Labs: Lab Results 08/04/24 08/04/24 Range/Units 07:38 08:23 WBC 10.2 (4.5-11.0) X10^3/uL RBC 4.65 (4.5-5.9) X10^6/uL Hgb 15.5 (13.5-17.5) g/dL Hct 46.0 (41-53) % MCV 98.8 (80-100) fL MCH 33.4 (26-34) PG MCHC 33.8 (30-36) % RDW 14.5 (11.6-14.8) % Plt Count 207 (150-400) X10^3/uL Neut % (Auto) 73.4 (50-75) % Lymph % (Auto) 14.6 L (25-40) % [place] % (Auto) 8.1 (3-14) % Eos % (Auto) 3.1 (2-4) % Baso % (Auto) 0.8 (0-2) % Neut # (Auto) 7400 H (0231-2933) /uL Lymph # (Auto) 1500 (0077-8785) /uL [place] # (Auto) 800 (0-900) /uL Eos # (Auto) 300 (0-450) /uL Baso # (Auto) 100 (0-100) /uL Sodium 136 L (137-145) mmol/L Potassium 4.7 (3.4-5.1) mmol/L Chloride 108 H (98-107) mmol/L Carbon Dioxide 21 L (22-32) mmol/L BUN 16 (9-20) mg/dL Creatinine 1.05 (0.66-1.25) mg/dL Estimated GFR > 60 (>60) mL/min BUN/Creatinine Ratio 15.2 (6-22) Glucose 119 H (80-110) mg/dL Lactate 1.2 (0.7-2.1) mmol/L Calcium 9.2 (8.4-10.2) mg/dL Total Bilirubin 0.6 (0.2-1.3) mg/dL AST 24 (17-59) IU/L ALT 16 (<50) IU/L Alkaline Phosphatase 56 (38-126) U/L Troponin I < 0.012 (0.01-0.034) ng/mL NT-Pro-B Natriuret Pep 246 (<450) pg/mL Total Protein 6.7 (6.3-8.2) g/dL Albumin 3.7 (3.5-5.0) g/dL Globulin 3.0 (1.7-4.1) g/dL Albumin/Globulin Ratio 1.2 (1.0-2.8) Procalcitonin 0.053 (<0.5) ng/mL Chlamy pneumoniae PCR Not detected (Not Detect) Adenovirus (PCR) Not detected (Not Detect) B. pertussis DNA (PCR) Not detected (Not Detect) B.parapertussis DNA PCR Not detected (Not Detecte) Coronavirus OC43 (PCR) Not detected (Not Detect) Coronavirus HKU1 (PCR) Not detected (Not Detect) Coronavirus 229E (PCR) Not detected (Not Detect) SARS-CoV-2 (PCR) Not detected (Not Detecte) Coronavirus NL63 (PCR) Not detected (Not Detect) Human Metapneumovir PCR Not detected (Not Detect) Influenza Type A (PCR) Not detected (Not Detect) Influenza Type B (PCR) Not detected (Not Detect) M. pneumoniae (PCR) Not detected (Not Detect) Parainfluenza 1 (PCR) Not detected (Not Detect) Parainfluenza 2 (PCR) Not detected (Not Detect) Parainfluenza 3 (PCR) Not detected (Not Detect) Parainfluenza 4 (PCR) Not detected (Not Detect) RSV (PCR) Not detected (Not Detect) Entero/Rhino (PCR) Not detected (Not Detect) Imaging Data CT scan - chest: Radiologist's Impression: PROCEDURE: CT CHEST W CON INDICATIONS: Cough, abnormal chest x-ray TECHNIQUE: After the administration of intravenous contrast, 5 mm thick sections acquired from the pulmonary apices to the posterior costophrenic angles. 1 mm axial lung, 5 mm thick coronal and sagittal reformats and 7 mm axial MIP were acquired. For radiation dose reduction, the following was used: automated exposure control, adjustment of mA and/or kV according to patient size. COMPARISON: [facility], CR, XR CHEST 1V, 08/04/2024, 7:27. FINDINGS: Image quality: Diagnostic Lungs and pleura: Diffuse mild peribronchial thickening. No dense airspace disease. No pleural effusions. There is traction bronchiectasis and peripheral reticulation, most severe involving the left upper lung, with focal honeycombing in the anterior left upper lung. Nodule is seen in the right upper lung measuring up to 6 mm. There may be superimposed emphysema. Mediastinum, heart, and esophagus: Diffuse mild esophageal wall thickening. Coronary calcifications are seen. Cardiac electrode leads are present. Normal heart size. No pathologic lymph nodes by size criteria. Chest wall and thyroid: Diffuse gynecomastia. Thyroid is unremarkable Upper abdomen: No gross abnormality, partially visualized Bones: There are degenerative changes. IMPRESSION: Diffuse peribronchial thickening possibly bronchitis. No dense airspace disease or pleural effusions. Background probable interstitial lung disease, with honeycombing focally seen in the anterior left upper lobe. Peripheral reticulation traction bronchiectasis are present. 6 mm right upper lobe pulmonary nodule. There may be superimposed emphysema. Consider 3 month follow-up with chest CT, high-resolution protocol can further evaluate interstitial lung disease depending on PFT pattern. Other findings above. Dictated by: Juvenal Garcia M.D. on 08/04/2024 at 8:53 MDM Narrative Medical decision making narrative: CC: Vomiting, cough, wheeze Complicating co-morbidities: COPD, paced with chronic atrial fibrillation as his underlying rhythm, GERD, hyperlipidemia Data collected from: patient Social determinants of health that may influence the patients condition: [facility], he does not remember medications, name of his physicians and we have no access to outside records Medical records reviewed: Prior ER visits reviewed Differential considered: Acute COPD exacerbation, pneumonia, congestive heart failure, viral syndrome, upper GI bleeding Exam documented above, pertinent findings include: Cooperative, appropriate in no acute distress, able to speak in complete sentences, diffuse wheeze and rhonchi through lung leone, no abdominal pain, 1+ bilateral lower extremity edema Lab Test results independently reviewed as above. Pertinent findings: CBC is unremarkable with no leukocytosis or anemia Chemistries are reassuring with appropriate renal function Initial troponin is undetectable ProBNP is not elevated Viral panel is negative today Independently reviewed EKG: Paste at a rate of 103 Imaging studies independently reviewed: Chest x-ray with patchy infiltrates throughout CT scan of the chest shows peribronchial cuffing without obvious infiltrate and likely interstitial lung disease with emphysematous changes Treatments: Fluid, DuoNeb, Solu-Medrol Re-evaluations: In light of the rather impressive chest x-ray but no suggestion of sepsis, leukocytosis or congestive heart failure will do a chest CT Discussion: 88-year-old gentleman primary care is through the [place] minimal records are available here. Increasing cough over the last couple of days with workup remarkably reassuring. There was no leukocytosis no suggestion of sepsis, he does not have acute coronary syndrome there was no congestive heart failure. CT scan suggest that he has interstitial lung disease as well as emphysema which is consistent with his chronic cough with viral etiology overlay. Viral panel is unremarkable today. He is not hypoxic, hypotensive, confused, requiring oxygen or showing secondary organ dysfunction. I believe he is safe for home discharge with treatment for acute COPD exacerbation in the setting of interstitial lung disease with high-risk for bacterial superinfection. We will place him on doxycycline and amoxicillin for 10 days along with a steroid taper and have him continue nebulizer use at home. Reviewed reasons to return to the emergency department. At this point he has not meeting criteria for hospitalization and will be Discharge Plan Departure Patient Disposition: Home Clinical Impression: Acute exacerbation of chronic obstructive pulmonary disease, Interstitial lung disease, Bronchiolitis Instructions: DI for Chronic Obstructive Pulmonary Disease, DI for Bronchiolitis Activity Restrictions/Additional Instructions: I am glad to let you know that you do not need to stay in the hospital today. You are not requiring oxygen, you are not showing signs of a severe bacterial pneumonia, there is no heart failure and there is no signs of a heart attack. The CT scan shows chronic lung changes called interstitial lung disease. It may be worth discussing this with your primary doctor when you were feeling better In the meantime, I want you to complete 10 days of both doxycycline and amoxicillin I have given you a prescription for a nebulizer machine and DuoNeb solution. I would suggest use DuoNeb solution up to 3 times a day as needed for cough or shortness a breath I also want you to complete an additional 5 days of prednisone All prescriptions have been electronically sent to [facility] If you find that you are getting worse or develop any new symptoms, please feel free to return to the emergency department for further evaluation. You do need to follow up with your primary physician in the next 2 weeks Prescriptions: New amoxicillin 500 mg capsule 500 mg PO TID Qty: 30 0RF doxycycline hyclate 100 mg capsule 100 mg PO BID Qty: 20 0RF (DME) nebulizer and compressor Device See Rx Instructions .Route Qty: 1 0RF Rx Instructions: As directed (DME) nebulizer accessories Kit See Rx Instructions .Route Qty: 1 0RF Rx Instructions: As directed ipratropium-albuterol 0.5 mg-3 mg(2.5 mg base)/3 mL solution for nebulization 3 ml inhalation Q6H PRN (Reason: shortness of breath or wheezing) Qty: 180 0RF prednisone 20 mg tablet 40 mg PO DAILY Qty: 10 0RF No Action furosemide [Lasix] 20 mg tablet 20 mg PO DAILY PRN (Reason: edema) Qty: 20 0RF doxycycline hyclate 100 mg capsule 100 mg PO BID Qty: 20 0RF Referrals: Miscellaneous,Doctor, MD [Primary Care Provider] - Stand Alone Forms: Patient Portal/API/Survey
--- NOTE | 2024-08-04 07:20 | EKG_ITS ---
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
--- NOTE | 2024-08-04 07:28 | DI.RAD.S_ITS ---
PROCEDURE: XR CHEST 1V INDICATIONS: cough TECHNIQUE: One view of the chest was acquired. COMPARISON: [facility], CR, XR CHEST 1V, 06/09/2024, 12:10. [facility], CR, XR CHEST 1V, 05/06/2024, 18:44. FINDINGS: Surgical changes and devices: Left pacemaker with right atrial and right ventricular leads. Lungs and pleura: Patchy opacity in the right lung. Perihilar streaky opacity bilaterally. Prominent pulmonary markings in the upper lobes. No pleural effusions or pneumothorax. Mediastinum: Mediastinal contours appear unchanged. Heart size is prominent. Bones and chest wall: No suspicious bony lesions. Overlying soft tissues appear unremarkable. IMPRESSION: Patchy opacity in the right lung and streaky perihilar opacity. Findings could represent pulmonary edema or pneumonia. Dictated by: Dewayne Melendez M.D. on 08/04/2024 at 7:49 Approved by: Dewayne Melendez M.D. on 08/04/2024 at 7:51
[2024-08-04] MEDS: SODIUM CHLORIDE 0.9% 1,000 ML 1000 ML IV (07:46)
[2024-08-04] MEDS: methylPREDNISolone 125 MG/2 ML VIAL IV (07:47)
[2024-08-04 07:48] LABS: Add Manual Diff / Slide Review NO; Basophils Absolute Auto 100 /uL (0-100); Basophils Percent Auto 0.8 % (0-2); Eosinophils Absolute Auto 300 /uL (0-450); Eosinophils Percent Auto 3.1 % (2-4); Hemoglobin 15.5 g/dL (13.5-17.5); Lymphocytes Absolute Auto 1500 /uL (1100-4500); Lymphocytes Percent Auto 14.6 % (25-40); Mean Corpuscular HGB Conc 33.8 % (30-36); Mean Corpuscular Hemoglobin 33.4 PG (26-34); Mean Corpuscular Volume 98.8 fL (80-100); Monocytes Absolute Auto 800 /uL (0-900); Monocytes Percent Auto 8.1 % (3-14); Neutrophils Absolute Auto 7400 /uL (1500-7000); Neutrophils Percent Auto 73.4 % (50-75); Platelet Count 207 X10^3/uL (150-400); Red Blood Cell Count 4.65 X10^6/uL (4.5-5.9); Red Cell Distribution Width 14.5 % (11.6-14.8); White Blood Cell Count 10.2 X10^3/uL (4.5-11.0)
[2024-08-04 07:59] LABS: Alanine Aminotransferase 16 IU/L (<50); Albumin 3.7 g/dL (3.5-5.0); Albumin Globulin Ratio 1.2 (1.0-2.8); Alkaline Phosphatase 56 U/L (38-126); Aspartate Aminotransferase 24 IU/L (17-59); BUN Creatinine Ratio 15.2 (6-22); Bilirubin Total 0.6 mg/dL (0.2-1.3); Blood Urea Nitrogen 16 mg/dL (9-20); Calcium 9.2 mg/dL (8.4-10.2); Carbon Dioxide 21 mmol/L (22-32); Chloride 108 mmol/L (98-107); Estimated Glomerular Filt Rate > 60 mL/min (>60); Glucose 119 mg/dL (80-110); HEMOLYSIS 28 (0-50); Potassium 4.7 mmol/L (3.4-5.1); Sodium 136 mmol/L (137-145); Total Protein 6.7 g/dL (6.3-8.2)
[2024-08-04] MEDS: ALBUTEROL/IPRATROPIUM 3 ML AMPUL INH ×2 (07:59→10:41)
[2024-08-04 08:00] LABS: Lactate (Lactic Acid) 1.2 mmol/L (0.7-2.1)
[2024-08-04 08:12] LABS: NT-proBNP (BNP-Adult 18+) 246 pg/mL (<450); Troponin I < 0.012 ng/mL (0.01-0.034)
[2024-08-04 08:16] LABS: Procalcitonin 0.053 ng/mL (<0.5)
--- NOTE | 2024-08-04 08:16 | RT ---
Pt kenrick pena tx well, no distress noted and on room air.
--- NOTE | 2024-08-04 08:19 | DI.CT.S_ITS ---
PROCEDURE: CT CHEST W CON INDICATIONS: Cough, abnormal chest x-ray TECHNIQUE: After the administration of intravenous contrast, 5 mm thick sections acquired from the pulmonary apices to the posterior costophrenic angles. 1 mm axial lung, 5 mm thick coronal and sagittal reformats and 7 mm axial MIP were acquired. For radiation dose reduction, the following was used: automated exposure control, adjustment of mA and/or kV according to patient size. COMPARISON: [facility], CR, XR CHEST 1V, 08/04/2024, 7:27. FINDINGS: Image quality: Diagnostic Lungs and pleura: Diffuse mild peribronchial thickening. No dense airspace disease. No pleural effusions. There is traction bronchiectasis and peripheral reticulation, most severe involving the left upper lung, with focal honeycombing in the anterior left upper lung. Nodule is seen in the right upper lung measuring up to 6 mm. There may be superimposed emphysema. Mediastinum, heart, and esophagus: Diffuse mild esophageal wall thickening. Coronary calcifications are seen. Cardiac electrode leads are present. Normal heart size. No pathologic lymph nodes by size criteria. Chest wall and thyroid: Diffuse gynecomastia. Thyroid is unremarkable Upper abdomen: No gross abnormality, partially visualized Bones: There are degenerative changes. IMPRESSION: Diffuse peribronchial thickening possibly bronchitis. No dense airspace disease or pleural effusions. Background probable interstitial lung disease, with honeycombing focally seen in the anterior left upper lobe. Peripheral reticulation traction bronchiectasis are present. 6 mm right upper lobe pulmonary nodule. There may be superimposed emphysema. Consider 3 month follow-up with chest CT, high-resolution protocol can further evaluate interstitial lung disease depending on PFT pattern. Other findings above. Dictated by: Juvenal Garcia M.D. on 08/04/2024 at 8:53 Approved by: Juvenal Garcia M.D. on 08/04/2024 at 8:57
[2024-08-04 09:18] LABS: Adenovirus Not Detected (Not Detect); B. parapertussis Not Detected (Not Detecte); Bordetella pertussis Not Detected (Not Detect); Chlamydophila pneumoniae Not Detected (Not Detect); Coronavirus 229E Not Detected (Not Detect); Coronavirus HKU1 Not Detected (Not Detect); Coronavirus NL 63 Not Detected (Not Detect); Coronavirus OC43 Not Detected (Not Detect); Human Metapneumovirus Not Detected (Not Detect); Human Rhinovirus/Enterovirus Not Detected (Not Detect); Influenza A Not Detected (Not Detect); Influenza B Not Detected (Not Detect); Mycoplasma pneumoniae Not Detected (Not Detect); Parainfluenza Virus 1 Not Detected (Not Detect); Parainfluenza Virus 2 Not Detected (Not Detect); Parainfluenza Virus 3 Not Detected (Not Detect); Parainfluenza Virus 4 Not Detected (Not Detect); Respiratory Syncytial Virus Not Detected (Not Detect); SARS- CoV-2 Not Detected (Not Detecte)
[2024-08-04] MEDS: AMOXICILLIN 250 MG CAPSULE 500 MG PO (10:36)
[2024-08-04] MEDS: DOXYCYCLINE HYCLATE 100 MG TABLET PO (10:36)
--- NOTE | 2024-08-04 10:56 | RT ---
pt kenrick marin well,on room air and no distress noted.
== END 2024-08-04 11:07 | disposition home or self-care (01) ==
PROVIDERS: Emergency Provider Emergency Medicine
DX: J44.1 Chronic obstructive pulmonary disease with (acute) exacerbation (principal); J84.9 Interstitial pulmonary disease, unspecified; J21.9 Acute bronchiolitis, unspecified; Z87.891 Personal history of nicotine dependence; Z95.0 Presence of cardiac pacemaker
CPT/HCPCS: 36415; 71045; 71260; 80053; 83605; 83880; 84145; 84484; 85025; 87040; 87633; 93005; 94640; 96361; 96374; 99284; J2919; Q9967

== ENCOUNTER → 2025-02-08 08:34 | Outpatient (CLI) | payer OTHER, SELFPAY ==
--- NOTE | 2025-02-08 08:36 | DI.CT.S_ITS ---
PROCEDURE: CT CHEST W CON INDICATIONS: shortness of breath TECHNIQUE: After the administration of intravenous contrast, 5 mm thick sections acquired from the pulmonary apices to the posterior costophrenic angles. 1 mm axial lung, 5 mm thick coronal and sagittal reformats and 7 mm axial MIP were acquired. For radiation dose reduction, the following was used: automated exposure control, adjustment of mA and/or kV according to patient size. COMPARISON: [facility], CR, XR CHEST 1V, 08/04/2024, 7:27. [facility], CT, CT CHEST W CON, 08/04/2024, 8:29. FINDINGS: Image quality: Diagnostic. Lower Neck: No enlarged lymph nodes. Thyroid: No thyroid nodules which require sonographic follow up, per consensus guidelines. Axillae: No enlarged lymph nodes. Chest Wall: Left anterior chest wall cardiac pacer. Bones: Spine degenerative disc disease and facet arthropathy. Lungs and Pleura: Mild central peribronchial wall thickening. Stable scattered of bilateral lung peripheral interstitial thickening with traction bronchiectasis and honeycombing in the anterior left upper lobe. No pneumothorax or pleural effusions. No lung consolidation. Stable 6 millimeter right upper lobe pulmonary nodule. No new lung nodules. Heart: Heart size is normal. No pericardial effusion. Atherosclerotic calcifications are noted in the aorta, great vessels and the coronary vasculature. Thoracic Vessels: The aorta and pulmonary arteries demonstrate normal size. Mediastinum and [place]: No enlarged lymph nodes. Esophagus: No wall thickening. Small hiatal hernia. Upper Abdomen: No acute disease process in the visualized abdomen. Mild, diffuse fatty infiltration of the visualized liver. IMPRESSION: Bronchial wall thickening concerning for chronic bronchitis. Stable scattered bilateral lung peripheral interstitial thickening. Stable 6 millimeter right upper lobe nodule. Consider optional follow-up CT scan in 12-18 months based on criteria outlined below. Fleischner Society criteria for SOLID lung nodule followup. Nodule size (mm)Low-risk patientHigh-risk patient<6 (single or multiple)No routine followup.Optional CT at 12 months. 6-8 (single or multiple)CT at 6-12 months, then optional CT at 18-24 mo.CT at 6-12 months, then CT at 18-24 months. >8 (single)CT at 3 months, PET-CT, or biopsy. Same as for low-risk pts. >8 (multiple)CT at 3-6 months, then optional CT at 18-24 mo.CT at 3-6 months, then CT at 18-24 months. Recommendations do not apply to lung cancer screening, patients with immunosuppression, or patients with known primary cancer. Dictated by: Qing Leija MD, PhD on 02/08/2025 at 11:28 Approved by: Qing Leija MD, PhD on 02/08/2025 at 11:34
[2025-02-08 09:06] LABS: Estimated Glomerular Filt Rate > 60 mL/min (>60)
== END ==
LOC: CT 08:35
PROVIDERS: Referring Provider Registered Nurse; Visit Provider Registered Nurse
DX: R91.1 Solitary pulmonary nodule (principal); J47.9 Bronchiectasis, uncomplicated; I25.10 Atherosclerotic heart disease of native coronary artery without angina pectoris; I70.0 Atherosclerosis of aorta; I70.8 Atherosclerosis of other arteries; K44.9 Diaphragmatic hernia without obstruction or gangrene; K76.0 Fatty (change of) liver, not elsewhere classified; R06.00 Dyspnea, unspecified
CPT/HCPCS: 36415; 71260; 82565; Q9967

== ENCOUNTER 2025-02-11 18:24 | Inpatient (IN) | payer OTHER, SELFPAY ==
[2025-02-11] VITALS (17 sets, daily range): BP systolic 83–138; BP diastolic 64–89; PULSE 59–109; RESP 11–25; TEMP 37; O2SAT 91–95; BMI 33.6
--- NOTE | 2025-02-11 18:49 | DI.RAD.S_ITS ---
PROCEDURE: XR CHEST 1V INDICATIONS: Chest Pain TECHNIQUE: One view of the chest was acquired. COMPARISON: [facility], CR, XR CHEST 1V, 08/04/2024, 7:27. [facility], CR, XR CHEST 1V, 06/09/2024, 12:10. FINDINGS: Surgical changes and devices: Left chest wall pacemaker. Lungs and pleura: Left upper lung field opacity. No pleural effusions or pneumothorax. Mediastinum: Mediastinal contours appear normal. Heart size is normal. Bones and chest wall: No suspicious bony lesions. Overlying soft tissues appear unremarkable. IMPRESSION: Left upper lung field opacity concerning for infection. Recommend follow-up radiograph to ensure resolution. Dictated by: Rock Dye M.D. on 02/11/2025 at 19:52 Approved by: Rock Dye M.D. on 02/11/2025 at 19:53
--- NOTE | 2025-02-11 18:54 | EKG_ITS ---
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
--- NOTE | 2025-02-11 19:34 | PC.NURSE ---
Patient here in department with epigastric chest pain that has been intermittently happening for the past week, states that the pain is much worse after eating and hes been taking tums 3x a day, pain not reproducible with palpation but patient states that when you press there it makes me belch. Hx of pacemaker, COPD
[2025-02-11 19:37] LABS: INR 1.0 (0.9-1.3); Prothrombin Time 11.3 SECONDS (9.4-12.5)
[2025-02-11 19:38] LABS: Alanine Aminotransferase 16 IU/L (<50); Albumin 4.3 g/dL (3.5-5.0); Albumin Globulin Ratio 1.2 (1.0-2.8); Alkaline Phosphatase 53 U/L (38-126); Blood Urea Nitrogen 22 mg/dL (9-20); Calcium 10.2 mg/dL (8.4-10.2); Carbon Dioxide 27 mmol/L (22-32); Chloride 105 mmol/L (98-107); Creatine Kinase 30 U/L (55-170); Estimated Glomerular Filt Rate > 60 mL/min (>60); Globulin 3.6 g/dL (1.7-4.1); Glucose 129 mg/dL (70-99); Lipase 69 U/L (23-300); Magnesium 1.8 mg/dL (1.6-2.3); Potassium 4.5 mmol/L (3.4-5.1); Sodium 137 mmol/L (137-145); Total Protein 7.9 g/dL (6.3-8.2)
[2025-02-11 19:40] LABS: HEMOLYSIS 59 (0-50); PTT Partial Thromboplastin Tim 19 SECONDS (25.1-36.5)
[2025-02-11 19:48] LABS: NT-proBNP (BNP-Adult 18+) 283 pg/mL (<450); Troponin I < 0.012 ng/mL (0.01-0.034)
[2025-02-11 19:51] LABS: Add Manual Diff / Slide Review NO; Hematocrit 46.4 % (41-53); Hemoglobin 15.5 g/dL (13.5-17.5); Lymphocytes Absolute Auto 1600 /uL (1100-4500); Mean Corpuscular HGB Conc 33.5 % (30-36); Mean Corpuscular Hemoglobin 33.3 PG (26-34); Mean Corpuscular Volume 99.4 fL (80-100); Platelet Count 194 X10^3/uL (150-400)
[2025-02-11] MEDS: ONDANSETRON 4 MG/2 ML INJ IV (20:23)
[2025-02-11] MEDS: MAG HYDROX/ALUMINUM/SIMETH SUS 20 ML, LIDOCAINE VISCOUS 2% 15 ML PO (20:23)
[2025-02-11 21:28] LABS: Troponin I < 0.012 ng/mL (0.01-0.034)
[2025-02-11] MEDS: DOXYCYCLINE HYCLATE 100 MG TABLET PO (21:43)
[2025-02-11] MEDS: PANTOPRAZOLE 40 MG VIAL IV (22:35)
--- NOTE | 2025-02-11 23:45 | ED_ITS ---
HPI - Chest Pain General Chief Complaint: Chest Pain Stated Complaint: HEARTBURN, STOMACH PAIN, CANT EAT, NAUSEA Time Seen by Provider: 02/11/25 21:16 Source: patient Mode of arrival: Ambulatory Limitations: no limitations History of Present Illness HPI narrative: 89-year-old male history of atrial fibrillation with pacemaker placement not on chronic anticoagulation, interstitial lung disease COPD for which he uses inhaler but apparently not on home oxygen, chronic lower extremity edema without known diagnosis CHF, hyperlipidemia, GERD, treated outpatient July 2024 with oral antibiotics for pneumonia. Complains of epigastric discomfort for the last couple of days, 2 weeks duration of cough. No lower extremity edema over recent baseline. Apparently not taking Lasix anymore. Denies fevers or chills. Related Data Home Medications ?Medication ?Instructions ?Recorded ?Confirmed cetirizine 10 mg capsule (All Day 10 mg PO BEDTIME all ergies 02/12/25 02/12/25 Allergy (cetirizine)) fluticasone propionate 50 2 spray intranasal DAILY all ergies 02/12/25 02/12/25 mcg/actuation nasal spray,suspension metoprolol succinate 50 mg 25 mg PO DAILY fast heart r ate 02/12/25 02/12/25 tablet,extended release 24 hr omeprazole 20 mg capsule,delayed 20 mg PO DAILY 02/12/25 release pravastatin 20 mg tablet 20 mg PO BEDTIME high choles terol 02/12/25 02/12/25 tiotropium 2.5 mcg-olodaterol 2.5 2 inh inhalation [place] LY COPD 02/12/25 02/12/25 mcg/actuation mist for inhalation trazadone 50 mg PO BEDTIME sleep 02/1202/12/25 Previous Rx's ?Medication ?Instructions ?Recorded furosemide 20 mg tablet (Lasix) 20 mg PO DAILY PRN cynthia ma #20 tabs 05/06/24 doxycycline hyclate 100 mg capsule 100 mg PO BID #20 c aps 06/09/24 amoxicillin 500 mg capsule 500 mg PO TID #30 caps 07/11 01/31 doxycycline hyclate 100 mg capsule 100 mg PO BID #20 c aps 08/04/24 ipratropium 0.5 mg-albuterol 3 mg 3 ml inhalation Q6H PRN shortness 08/04/24 (2.5 mg base)/3 mL nebulization of breath or wheezing #180 mL soln nebulizer accessories #1 ea 08/04/24 nebulizer and compressor #1 ea 08/04/24 prednisone 20 mg tablet 40 mg (2 x 20 mg) PO DAILY # 10 tabs 08/04/24 Allergies Allergy/AdvReac Type Severity Reaction Status Date / Time No Known Drug Allergies Allergy Verified 06/18/23 10:48 Patient History Medical History (Updated 02/12/25 @ 00:16 by Cy Llanes MD) Interstitial lung disease COPD (chronic obstructive pulmonary disease) Bilateral edema of lower extremity Chronic atrial fibrillation Anticoagulated Pacemaker Social History household members: spouse Smoking Status: Former smoker Smoking Status: Former smoker tobacco type: cigarettes alcohol intake frequency: 0-2 drinks per day Alcohol type: hard liquor Exam Narrative Exam Narrative: GENERAL: Well-developed patient, in mild distress. HEAD: Atraumatic. Normocephalic. EYES: Pupils equal round and reactive. Extraocular motions intact. No scleral icterus. No injection or drainage. ENT: Nose without bleeding, purulent drainage. Throat without erythema, tonsillar hypertrophy or exudate. Airway patent. NECK: Trachea midline. Non tender CARDIOVASCULAR: Regular rate and rhythm without murmurs, gallops, or rubs. RESPIRATORY: Clear to auscultation. Breath sounds equal bilaterally. No wheezes, rales, or rhonchi. GASTROINTESTINAL: Abdomen soft, non-tender, nondistended. EXTREMITIES: No edema or joint tenderness. BACK: Nontender without deformity or crepitance. No flank tenderness. NEURO: AOx3. Motor functions grossly nonfocal. SKIN: No rash or erythema of visible areas Initial Vital Signs Initial Vital Signs: Vital Signs Temperature 98.6 F 02/11/25 18:45 Pulse Rate 108 H 02/11/25 18:45 Respiratory Rate 20 02/11/25 18:45 Blood Pressure 114/76 02/11/25 18:45 Pulse Oximetry 94 02/11/25 18:45 Oxygen Delivery Method Room Air 02/11/25 18:45 Course Orders Ordered: Acetaminophen (Acetaminophen 325 Mg Tablet) 650 mg PO Q6H PRN PRN Reason: Fever/Mild Pain (1-3) Albuterol/Ipratropium (Albuterol/Ipratropium 3 Ml Ampul) 3 ml INH RTQ4HR PRN PRN Reason: Shortness Of Breath Doxycycline Hyclate (Doxycycline Hyclate 100 Mg Tablet) 100 mg PO BID [facility] Last Admin: 02/12/25 08:56 Dose: 100 mg Documented By: LDV Furosemide (Furosemide 20 Mg Tablet) 20 mg PO DAILY PRN PRN Reason: Edema Heparin Sodium (Porcine) (Heparin 5,000 Unit/Ml Vial) 5,000 unit SUBCUT BID [facility] Last Admin: 02/12/25 08:56 Dose: 5,000 unit Documented By: LDV Ceftriaxone Sodium 1,000 mg/ (Sodium Chloride) 100 mls @ 200 mls/hr IV BEDTIME [facility] Sodium Chloride (Normal Saline 0.9%) 250 mls @ 21 mls/hr IV Q24H PRN PRN Reason: Flush Metoprolol Succinate (Metoprolol Er 50 Mg Tablet) 25 mg PO DAILY [facility] Naloxone HCl (Naloxone 0.4 Mg/Ml Vial) 0.2 mg IV Q2MIN PRN PRN Reason: Opiate Reversal Ondansetron HCl (Ondansetron 4 Mg/2 Ml Inj) 4 mg IV Q8HR PRN PRN Reason: Nausea And Vomiting Pantoprazole Sodium (Pantoprazole Dr 20 Mg Tablet) 20 mg PO 0600 [facility] Pravastatin Sodium (Pravastatin 20 Mg Tablet) 20 mg PO BEDTIME [facility] Prednisone (Prednisone 20 Mg Tablet) 40 mg PO DAILY [facility] Last Admin: 02/12/25 08:56 Dose: 40 mg Documented By: LDV Sodium Chloride (Sodium Chloride 0.9% Flush) 10 ml IV PRN PRN PRN Reason: Flush Sodium Chloride (Sodium Chloride 0.9% Flush) 10 ml IV BID [facility] Last Admin: 02/12/25 08:56 Dose: 10 ml Documented By: LDV Trazodone HCl (Trazodone 50 Mg Tablet) 50 mg PO BEDTIME [facility] Discontinued Medications Aspirin (Aspirin 81 Mg Chew Tab) 324 mg PO NOW ONE Stop: 02/11/25 18:50 Last Admin: 02/11/25 20:05 Dose: Not Given Documented By: JADE Al Hydrox/Mg Hydrox/Simethicone 20 ml/ Lidocaine HCl 15 ml 0 ml PO NOW ONE Stop: 02/11/25 20:15 Last Admin: 02/11/25 20:23 Dose: 35 ml Documented By: BRITTANY Doxycycline Hyclate (Doxycycline Hyclate 100 Mg Tablet) 100 mg PO NOW ONE Stop: 02/11/25 21:17 Last Admin: 02/11/25 21:43 Dose: 100 mg Documented By: JADE Ceftriaxone Sodium 1,000 mg/ (Sodium Chloride) 100 mls @ 200 mls/hr IV NOW ONE Stop: 02/12/25 00:14 Last Infusion: 02/12/25 01:33 Dose: Infused Documented By: Admin: 02/12/25 00:36 Dose: 200 mls/hr Documented By: LEANNA Ondansetron HCl (Ondansetron 4 Mg/2 Ml Inj) 4 mg IV NOW ONE Stop: 02/11/25 20:21 Last Admin: 02/11/25 20:23 Dose: 4 mg Documented By: JADE Pantoprazole Sodium (Pantoprazole 40 Mg Vial) 40 mg IV NOW ONE Stop: 02/11/25 22:28 Last Admin: 02/11/25 22:35 Dose: 40 mg Documented By: JADE Vital Signs Vital signs: Vital Signs - 8 hr 02/11/25 18:45 02/11/25 19:25 02/11/25 19:26 Temperature 98.6 F Pulse Rate 108 H 99 H 97 H Respiratory Rate 20 15 22 Blood Pressure 114/76 Pulse Oximetry 94 93 92 Oxygen Delivery Method Room Air Oxygen Flow Rate 02/11/25 19:26 02/11/25 19:30 02/11/25 20:00 Temperature Pulse Rate 97 H 101 H Respiratory Rate Blood Pressure 138/89 Pulse Oximetry 92 95 Oxygen Delivery Method Oxygen Flow Rate 02/11/25 20:01 02/11/25 20:01 02/11/25 20:30 Temperature Pulse Rate 101 H 66 Respiratory Rate 19 Blood Pressure 124/82 Pulse Oximetry 93 Oxygen Delivery Method Oxygen Flow Rate 02/11/25 21:00 02/11/25 21:30 02/11/25 21:30 Temperature Pulse Rate 105 H 108 H Respiratory Rate 11 L 24 Blood Pressure 131/86 Pulse Oximetry 93 Oxygen Delivery Method Oxygen Flow Rate 02/11/25 22:00 02/11/25 22:04 02/11/25 22:04 Temperature Pulse Rate 109 H 106 H Respiratory Rate 17 25 H Blood Pressure 106/77 Pulse Oximetry 95 92 Oxygen Delivery Method Oxygen Flow Rate 02/11/25 22:30 02/11/25 22:30 02/11/25 22:34 Temperature Pulse Rate 107 H 108 H Respiratory Rate 24 20 Blood Pressure 87/66 L Pulse Oximetry 91 94 Oxygen Delivery Method Oxygen Flow Rate 02/11/25 22:34 02/11/25 22:37 02/11/25 22:37 Temperature Pulse Rate 107 H Respiratory Rate Blood Pressure 83/64 L 95/71 Pulse Oximetry 93 Oxygen Delivery Method Oxygen Flow Rate 02/11/25 22:52 02/11/25 22:52 02/11/25 23:00 Temperature Pulse Rate 59 L 59 L Respiratory Rate 20 19 Blood Pressure 126/75 Pulse Oximetry 94 95 Oxygen Delivery Method Nasal Cannula Oxygen Flow Rate 2 02/11/25 23:00 02/11/25 23:30 02/11/25 23:30 Temperature Pulse Rate 109 H Respiratory Rate Blood Pressure 117/72 110/71 Pulse Oximetry Oxygen Delivery Method Oxygen Flow Rate 02/12/25 00:00 02/12/25 00:00 Temperature Pulse Rate 109 H Respiratory Rate 22 Blood Pressure 107/79 Pulse Oximetry 93 Oxygen Delivery Method Room Air Oxygen Flow Rate MDM - Chest Pain Lab Data Lab results narrative: White blood cell count 39664, hemoglobin 15.5, platelets adequate. Glucose 129, BUN creatinine unremarkable. Normal electrolytes. Normal serum CO2. Liver functions and lipase normal. Troponin negative/on measurable x2 interval sets. BNP 283 not elevated. 02/11/25 19:40 02/11/25 19:00 Labs: Lab Results 02/11/25 02/11/25 02/11/25 Range/Units 19:00 19:40 20:56 WBC 10.7 (4.5-11.0) X10^3/uL RBC 4.66 (4.5-5.9) X10^6/uL Hgb 15.5 (13.5-17.5) g/dL Hct 46.4 (41-53) % MCV 99.4 (80-100) fL MCH 33.3 (26-34) PG MCHC 33.5 (30-36) % RDW 14.2 (11.6-14.8) % Plt Count 194 (150-400) X10^3/uL Neut % (Auto) 73.5 (50-75) % Lymph % (Auto) 14.6 L (25-40) % [place] % (Auto) 8.6 (3-14) % Eos % (Auto) 2.4 (2-4) % Baso % (Auto) 0.9 (0-2) % Neut # (Auto) 7800 H (0476-5310) /uL Lymph # (Auto) 1600 (6081-1917) /uL [place] # (Auto) 900 (0-900) /uL Eos # (Auto) 300 (0-450) /uL Baso # (Auto) 100 (0-100) /uL PT 11.3 (9.4-12.5) SECONDS INR 1.0 (0.9-1.3) APTT 19 L (25.1-36.5) SECONDS Sodium 137 (137-145) mmol/L Potassium 4.5 (3.4-5.1) mmol/L Chloride 105 (98-107) mmol/L Carbon Dioxide 27 (22-32) mmol/L BUN 22 H (9-20) mg/dL Creatinine 0.97 (0.66-1.25) mg/dL Estimated GFR > 60 (>60) mL/min BUN/Creatinine Ratio 22.7 H (6-22) Glucose 129 H (70-99) mg/dL Lactate (0.7-2.1) mmol/L Calcium 10.2 (8.4-10.2) mg/dL Magnesium 1.8 (1.6-2.3) mg/dL Total Bilirubin 0.9 (0.2-1.3) mg/dL AST 30 (17-59) IU/L ALT 16 (<50) IU/L Alkaline Phosphatase 53 (38-126) U/L Total Creatine Kinase 30 L (55-170) U/L Troponin I < 0.012 < 0.012 (0.01-0.034) ng/mL NT-Pro-B Natriuret Pep 283 (<450) pg/mL Total Protein 7.9 (6.3-8.2) g/dL Albumin 4.3 (3.5-5.0) g/dL Globulin 3.6 (1.7-4.1) g/dL Albumin/Globulin Ratio 1.2 (1.0-2.8) Lipase 69 (23-300) U/L 02/12/25 Range/Units 00:43 WBC (4.5-11.0) X10^3/uL RBC (4.5-5.9) X10^6/uL Hgb (13.5-17.5) g/dL Hct (41-53) % MCV (80-100) fL MCH (26-34) PG MCHC (30-36) % RDW (11.6-14.8) % Plt Count (150-400) X10^3/uL Neut % (Auto) (50-75) % Lymph % (Auto) (25-40) % [place] % (Auto) (3-14) % Eos % (Auto) (2-4) % Baso % (Auto) (0-2) % Neut # (Auto) (3231-2862) /uL Lymph # (Auto) (2257-7874) /uL [place] # (Auto) (0-900) /uL Eos # (Auto) (0-450) /uL Baso # (Auto) (0-100) /uL PT (9.4-12.5) SECONDS INR (0.9-1.3) APTT (25.1-36.5) SECONDS Sodium (137-145) mmol/L Potassium (3.4-5.1) mmol/L Chloride (98-107) mmol/L Carbon Dioxide (22-32) mmol/L BUN (9-20) mg/dL Creatinine (0.66-1.25) mg/dL Estimated GFR (>60) mL/min BUN/Creatinine Ratio (6-22) Glucose (70-99) mg/dL Lactate 1.1 (0.7-2.1) mmol/L Calcium (8.4-10.2) mg/dL Magnesium (1.6-2.3) mg/dL Total Bilirubin (0.2-1.3) mg/dL AST (17-59) IU/L ALT (<50) IU/L Alkaline Phosphatase (38-126) U/L Total Creatine Kinase (55-170) U/L Troponin I (0.01-0.034) ng/mL NT-Pro-B Natriuret Pep (<450) pg/mL Total Protein (6.3-8.2) g/dL Albumin (3.5-5.0) g/dL Globulin (1.7-4.1) g/dL Albumin/Globulin Ratio (1.0-2.8) Lipase (23-300) U/L Imaging Data Chest x-ray: Radiologist's Impression: [address] [address] XRay Report Signed Patient: Mario Farrell MR#: [id number] : 1935 Acct:[id number] Age/Sex: 89 / M Date of Service: 02/11/25 Loc: ED Accession Number: [id number] Procedure: XR chest 1V Ordering Provider: Cy Llanes MD PROCEDURE: XR CHEST 1V INDICATIONS: Chest Pain TECHNIQUE: One view of the chest was acquired. COMPARISON: [facility], CR, XR CHEST 1V, 08/04/2024, 7:27. [facility], CR, XR CHEST 1V, 06/09/2024, 12:10. FINDINGS: Surgical changes and devices: Left chest wall pacemaker. Lungs and pleura: Left upper lung field opacity. No pleural effusions or pneumothorax. Mediastinum: Mediastinal contours appear normal. Heart size is normal. Bones and chest wall: No suspicious bony lesions. Overlying soft tissues appear unremarkable. IMPRESSION: Left upper lung field opacity concerning for infection. Recommend follow-up radiograph to ensure resolution. Dictated by: Rock Dye M.D. on 02/11/2025 at 19:52 Approved by: Rock Dye M.D. on 02/11/2025 at 19:53 ECG Data Attestation: I personally reviewed and interpreted this ECG as follows: Interpretation: 1854, atrial sensed ventricular paced rhythm, ventricular rate 101. PA 174, QRS 158, QTC 521. [facility] Narrative Medical decision making narrative: 89-year-old male with history of cardiac pacemaker, atrial fibrillation, GERD, prior pneumonia , has two weeks duration cough, epigastric pain, trouble swallowing sometimes, burping. EKG, CXR, labs pending. DDx consider ACS, pneumonia, MAKENZIE, other. EKG shows atrial paced ventricular sensed rhythm, ventricular rate 101. Lab data: White blood cell count 57022, hemoglobin 15.5, platelets adequate. Glucose 129, BUN creatinine unremarkable. Normal electrolytes. Normal serum CO2. Liver functions and lipase normal. Troponin negative/on measurable x2 interval sets. Chest x-ray shows left upper lobe infiltrate. See radiology report. GI cocktail given, some burping this, seemed to have trouble swallowing. Epigastric discomfort improved. History of MAKENZIE noted. Tachycardia with medtronic pacemaker, history of atrial fibrillation, previously on metoprolol by report, not on med list. Heart rate 108. Paced rhtym, cannot see fluter waves. Pneumonia on chest x-ray. Add lactate. Blood cultures. Oral doxycycline given prior, we will add IV ceftriaxone. Mild tachycardia, soft blood pressure. Recent nausea and vomiting difficulty swallowing, history of MAKENZIE noted. Consider admission. We will contact hospitalist. Pacemaker identified as Medtronic, interrogation requested, to see if the tachycardia might be some kind of malfunction. Await report. 0115, case discussed with hospitalist Dr. Martin who accepts patient for admission to inpatient. Critical Care Time Critical Care Time Total Critical Care Time: 35 Attestation: The high probability of a clinically significant, sudden or life threatening deterioration of the [GI, cardiopulmonary] system(s) required my full and direct attention, intervention and personal management. The aggregate critical care time was [35] minutes. This time is in addition to time spent performing reported procedures but includes the following: [x] Data Review and interpretation [x] Patient assessment and monitoring of vital signs [x] Documentation [x] Medication orders and management Discharge Plan Departure Patient Disposition: Admitted As Inpatient Clinical Impression: Pneumonia, Interstitial lung disease, Tachycardia, Nausea and vomiting Admit Date/Time: 02/12/25 01:16 Admit Provider: Bright Martin
[2025-02-12] VITALS (12 sets, daily range): BP systolic 91–150; BP diastolic 54–79; PULSE 67–109; RESP 16–22; TEMP 36–36.1; O2SAT 90–95; BMI 33.6
[2025-02-12 01:13] LABS: Lactate (Lactic Acid) 1.1 mmol/L (0.7-2.1)
--- NOTE | 2025-02-12 05:18 | PM.HP.1 ---
History of Present Illness History of Present Illness Date Patient Seen: 02/12/25 Time Patient Seen: 22:23 Chief complaint: HEARTBURN, STOMACH PAIN, CANT EAT, NAUSEA Narrative: 89-year-old male with medical history of atrial fibrillation with pacemaker placement on chronic anticoag, interstitial lung disease/COPD, not oxygen dependent, hyperlipidemia, GERD presents with complaint of nausea, heartburn and poor oral intake. Per the patient report, has been having a cough over the last 2 weeks. The patient states that his cough is relatively dry but he also has some GI symptoms of epigastric discomfort along with poor oral intake. The patient was nauseous but not having any vomiting. The patient also denies any fever, chills, chest pain or shortness of breath. In the emergency room, the patient was hemodynamically stable. Lab were relatively benign with a normal WBC. Lactate was normal. Troponin were negative x 2. X-ray showed left upper lung field passing concerning for infection. The patient was given GI cocktail along with doxycycline and IV ceftriaxone. The patient was saturating in the low 90s on room air. Pacemaker was interrogated. [facility] Medical History (Updated 02/12/25 @ 00:16 by Cy Llanes MD) Interstitial lung disease COPD (chronic obstructive pulmonary disease) Bilateral edema of lower extremity Chronic atrial fibrillation Anticoagulated Pacemaker Social History household members: spouse Smoking Status: Former smoker Meds Home Medications and Allergies Home Medications ?Medication ?Instructions ?Recorded ?Confirmed ?Type furosemide 20 mg tablet (Lasix) 20 mg PO DAILY PRN edema #20 tabs 05/06/24 Rx doxycycline hyclate 100 mg capsule 100 mg PO BID #20 caps 06/09/24 Rx amoxicillin 500 mg capsule 500 mg PO TID #30 caps 08/04/24 Rx doxycycline hyclate 100 mg capsule 100 mg PO BID #20 caps 08/04/24 Rx ipratropium 0.5 mg-albuterol 3 mg 3 ml inhalation Q6H PRN shortness 08/04/24 Rx (2.5 mg base)/3 mL nebulization of breath or wheezing #180 mL soln nebulizer accessories #1 ea 08/04/24 Rx nebulizer and compressor #1 ea 08/04/24 Rx prednisone 20 mg tablet 40 mg (2 x 20 mg) PO DAILY #10 tabs 08/04/24 Rx Allergies Allergy/AdvReac Type Severity Reaction Status Date / Time No Known Drug Allergies Allergy Verified 06/18/23 10:48 Review of Systems Review of Systems ROS: Yes All systems reviewed with the patient and are negative except as otherwise documented Exam Vital Signs (past 8 hours): - 02/11/25 21:30 02/11/25 21:30 02/11/25 22:00 Temperature Pulse Rate 108 H 109 H Respiratory Rate 24 17 Blood Pressure 131/86 Pulse Oximetry 95 Oxygen Delivery Method Oxygen Flow Rate 02/11/25 22:04 02/11/25 22:04 02/11/25 22:30 Temperature Pulse Rate 106 H 107 H Respiratory Rate 25 H 24 Blood Pressure 106/77 Pulse Oximetry 92 91 Oxygen Delivery Method Oxygen Flow Rate 02/11/25 22:30 02/11/25 22:34 02/11/25 22:34 Temperature Pulse Rate 108 H Respiratory Rate 20 Blood Pressure 87/66 L 83/64 L Pulse Oximetry 94 Oxygen Delivery Method Oxygen Flow Rate 02/11/25 22:37 02/11/25 22:37 02/11/25 22:52 Temperature Pulse Rate 107 H 59 L Respiratory Rate 20 Blood Pressure 95/71 Pulse Oximetry 93 94 Oxygen Delivery Method Oxygen Flow Rate 02/11/25 22:52 02/11/25 23:00 02/11/25 23:00 Temperature Pulse Rate 59 L Respiratory Rate 19 Blood Pressure 126/75 117/72 Pulse Oximetry 95 Oxygen Delivery Method Nasal Cannula Oxygen Flow Rate 2 02/11/25 23:30 02/11/25 23:30 02/12/25 00:00 Temperature Pulse Rate 109 H Respiratory Rate Blood Pressure 110/71 107/79 Pulse Oximetry Oxygen Delivery Method Oxygen Flow Rate 02/12/25 00:00 02/12/25 00:30 02/12/25 00:31 Temperature Pulse Rate 109 H 107 H 107 H Respiratory Rate 22 16 17 Blood Pressure Pulse Oximetry 93 Oxygen Delivery Method Room Air Oxygen Flow Rate 02/12/25 00:31 02/12/25 01:00 02/12/25 01:06 Temperature Pulse Rate 107 H 104 H Respiratory Rate 16 21 Blood Pressure 92/54 L Pulse Oximetry 90 L 92 Oxygen Delivery Method Oxygen Flow Rate 02/12/25 01:06 02/12/25 01:30 02/12/25 02:15 Temperature 96.8 F L Pulse Rate 104 H 78 Respiratory Rate 17 22 Blood Pressure 105/72 96/63 Pulse Oximetry 92 94 Oxygen Delivery Method Nasal Cannula Oxygen Flow Rate 2 0 02/12/25 03:16 Temperature Pulse Rate Respiratory Rate Blood Pressure Pulse Oximetry 92 Oxygen Delivery Method Nasal Cannula Oxygen Flow Rate 2 Oxygen Delivery Method Nasal Cannula Oxygen Flow Rate 2 Narrative Exam Narrative: Physical Exam: GENERAL: The patient is not in any acute distressed. Awake and alert. HEENT: Nonicteric sclerae, PERRLA, EOMI. Oropharynx clear. Moist mucous membranes. Conjunctivae appear well perfused. HEART: Regular rate and rhythm without murmurs. No lower extremities edema. LUNGS: Clear to auscultation bilaterally. No wheezing, crackles or rhonchi ABDOMEN: Soft, positive bowel sounds, nontender. SKIN: No rash, no excessive bruising, petechiae, or purpura. NEUROLOGIC: AxO x 3. Cranial nerves II-XII intact without motor/sensory deficit. Objective Labs 02/11/25 19:40 02/11/25 19:00 Labs: Laboratory Results - last 24 hr 02/11/25 02/11/25 02/11/25 19:00 19:40 20:56 WBC 10.7 RBC 4.66 Hgb 15.5 Hct 46.4 MCV 99.4 MCH 33.3 MCHC 33.5 RDW 14.2 Plt Count 194 Neut % (Auto) 73.5 Lymph % (Auto) 14.6 L [place] % (Auto) 8.6 Eos % (Auto) 2.4 Baso % (Auto) 0.9 Neut # (Auto) 7800 H Lymph # (Auto) 1600 [place] # (Auto) 900 Eos # (Auto) 300 Baso # (Auto) 100 PT 11.3 INR 1.0 APTT 19 L Sodium 137 Potassium 4.5 Chloride 105 Carbon Dioxide 27 BUN 22 H Creatinine 0.97 Estimated GFR > 60 BUN/Creatinine Ratio 22.7 H Glucose 129 H Lactate Calcium 10.2 Magnesium 1.8 Total Bilirubin 0.9 AST 30 ALT 16 Alkaline Phosphatase 53 Total Creatine Kinase 30 L Troponin I < 0.012 < 0.012 NT-Pro-B Natriuret Pep 283 Total Protein 7.9 Albumin 4.3 Globulin 3.6 Albumin/Globulin Ratio 1.2 Lipase 69 02/12/25 00:43 WBC RBC Hgb Hct MCV MCH MCHC RDW Plt Count Neut % (Auto) Lymph % (Auto) [place] % (Auto) Eos % (Auto) Baso % (Auto) Neut # (Auto) Lymph # (Auto) [place] # (Auto) Eos # (Auto) Baso # (Auto) PT INR APTT Sodium Potassium Chloride Carbon Dioxide BUN Creatinine Estimated GFR BUN/Creatinine Ratio Glucose Lactate 1.1 Calcium Magnesium Total Bilirubin AST ALT Alkaline Phosphatase Total Creatine Kinase Troponin I NT-Pro-B Natriuret Pep Total Protein Albumin Globulin Albumin/Globulin Ratio Lipase Assessment & Plan Assessment & Plan narrative: Community-acquired pneumonia. Met the patient to medical telemetry as inpatient. Of note patient not septic at this time. Continue doxycycline and ceftriaxone. History of interstitial lung disease/COPD. No clear sign of exacerbation. Will continue to monitor respiratory status with your nebulizer. Resume home prednisone. History of atrial fibrillation. Rate controlled. Resume home medication. Of note patient on chronic anticoagulation. DVT prophylaxis heparin subcu. CODE STATUS DNR/DNI Disposition likely home in 2 days - As the provider of this telehealth evaluation, requested by the patient's evaluating physician, I attest that I introduced myself to the patient, provided my credentials and determined that telemedicine via a real-time, 2 way interactive audio and video platform is an appropriate and effective means of providing this service. - I reviewed the patient's chart and had a discussion with the member of the patient's treatment team. - The patient and I mutually agreed with continuation of this evaluation via telemedicine. The patient consented for the telemedicine evaluation. - This virtual encounter was taken place from [place] by Dr. Bright Martin. The patient was evaluated at [facility]. The encounter was approximately 35 minutes. The nurse was present during the entire time of the encounter and was able to move the stethoscope in appropriate directions. Time-Based Coding :: [TOTAL MINUTES] spent with patient and on the chart (including review of chart, obtaining history, exam, reviewing outside data, placing orders, documenting exam and treatment plan, and counseling patient) on [DATE].
--- NOTE | 2025-02-12 07:32 | P.PN_ITS ---
Subjective Subjective Date Patient Seen: 02/12/25 Interval history: The CBC and CMP were normal yesterday. The chest x-ray is reviewed. It is read as left upper lobe pneumonia but looks actually perihilar to me. He tells me that he lives in [place] with his and attends at the [facility] for his primary care physician. He says the left upper quadrant pain started after drinking orange juice. Exam Vital Signs (past 8 hours): - 02/12/25 00:00 02/12/25 00:00 02/12/25 00:30 Temperature Pulse Rate 109 H 107 H Respiratory Rate 22 16 Blood Pressure 107/79 Pulse Oximetry 93 Oxygen Delivery Method Room Air Oxygen Flow Rate 02/12/25 00:31 02/12/25 00:31 02/12/25 01:00 Temperature Pulse Rate 107 H 107 H Respiratory Rate 17 16 Blood Pressure 92/54 L Pulse Oximetry 90 L Oxygen Delivery Method Oxygen Flow Rate 02/12/25 01:06 02/12/25 01:06 02/12/25 01:30 Temperature Pulse Rate 104 H 104 H Respiratory Rate 21 17 Blood Pressure 105/72 Pulse Oximetry 92 92 Oxygen Delivery Method Nasal Cannula Oxygen Flow Rate 2 02/12/25 02:15 02/12/25 03:16 Temperature 96.8 F L Pulse Rate 78 Respiratory Rate 22 Blood Pressure 96/63 Pulse Oximetry 94 92 Oxygen Delivery Method Nasal Cannula Oxygen Flow Rate 0 2 Oxygen Delivery Method Nasal Cannula Oxygen Flow Rate 2 Narrative Exam Narrative: Alert and oriented x3. No apparent distress. Heart is regular rate and rhythm without murmur Lungs are clear to auscultation bilaterally Extremities have no ankle edema Abdomen is tender in the left upper quadrant. Bowel sounds are active. There is no organomegaly. Objective Labs 02/11/25 19:40 02/11/25 19:00 Labs: Laboratory Results - last 24 hr 02/11/25 02/11/25 02/11/25 19:00 19:40 20:56 WBC 10.7 RBC 4.66 Hgb 15.5 Hct 46.4 MCV 99.4 MCH 33.3 MCHC 33.5 RDW 14.2 Plt Count 194 Neut % (Auto) 73.5 Lymph % (Auto) 14.6 L [place] % (Auto) 8.6 Eos % (Auto) 2.4 Baso % (Auto) 0.9 Neut # (Auto) 7800 H Lymph # (Auto) 1600 [place] # (Auto) 900 Eos # (Auto) 300 Baso # (Auto) 100 PT 11.3 INR 1.0 APTT 19 L Sodium 137 Potassium 4.5 Chloride 105 Carbon Dioxide 27 BUN 22 H Creatinine 0.97 Estimated GFR > 60 BUN/Creatinine Ratio 22.7 H Glucose 129 H Lactate Calcium 10.2 Magnesium 1.8 Total Bilirubin 0.9 AST 30 ALT 16 Alkaline Phosphatase 53 Total Creatine Kinase 30 L Troponin I < 0.012 < 0.012 NT-Pro-B Natriuret Pep 283 Total Protein 7.9 Albumin 4.3 Globulin 3.6 Albumin/Globulin Ratio 1.2 Lipase 69 02/12/25 00:43 WBC RBC Hgb Hct MCV MCH MCHC RDW Plt Count Neut % (Auto) Lymph % (Auto) [place] % (Auto) Eos % (Auto) Baso % (Auto) Neut # (Auto) Lymph # (Auto) [place] # (Auto) Eos # (Auto) Baso # (Auto) PT INR APTT Sodium Potassium Chloride Carbon Dioxide BUN Creatinine Estimated GFR BUN/Creatinine Ratio Glucose Lactate 1.1 Calcium Magnesium Total Bilirubin AST ALT Alkaline Phosphatase Total Creatine Kinase Troponin I NT-Pro-B Natriuret Pep Total Protein Albumin Globulin Albumin/Globulin Ratio Lipase PFSH Medical History (Updated 02/12/25 @ 00:16 by Cy Llanes MD) Interstitial lung disease COPD (chronic obstructive pulmonary disease) Bilateral edema of lower extremity Chronic atrial fibrillation Anticoagulated Pacemaker Social History household members: spouse Smoking Status: Former smoker Assessment & Plan Assessment & Plan narrative: Community-acquired pneumonia. Continue doxycycline and ceftriaxone. History of interstitial lung disease/COPD. No clear sign of exacerbation. Will continue to monitor respiratory status and continues on home prednisone. History of atrial fibrillation. Rate controlled. Resume home medication. Of note patient on chronic anticoagulation. DVT prophylaxis heparin subcu. CODE STATUS DNR/DNI Disposition likely home in 2 days Time-Based Coding :: [TOTAL MINUTES] spent with patient and on the chart (including review of chart, obtaining history, exam, reviewing outside data, placing orders, documenting exam and treatment plan, and counseling patient) on [DATE].
[2025-02-12] MEDS: HEPARIN 5,000 UNIT/ML VIAL 5000 UNIT SUBCUT ×2 (08:56→21:39)
[2025-02-12] MEDS: SODIUM CHLORIDE 0.9% FLUSH 10 ML IV (08:56)
[2025-02-12] MEDS: DOXYCYCLINE HYCLATE 100 MG TABLET PO (08:56)
--- NOTE | 2025-02-12 14:12 | PT-IP ANOTE ---
PT consult received. PT reviewed chart and checked in on pt who is sleeping soundly and who does not awaken to voice. Con't PT efforts.
--- NOTE | 2025-02-12 14:32 | CM.DANOTE ---
Initial DCP Assessment Note Pt is an 89 yo male, resident of [place], admitted for management of PNA with hx of interstitial lung disease/COPD. PCP: [facility] Payer: [employer] Reviewed chart, pt discussed in multidisciplinary rounds this morning. MINOO 7. Met w/patient, his (with advanced dementia, TORRES MARTINEZ) and step daughter Mila (visiting from out of town). Patient and sp live in [place], patient has been indp in all ADLs, drives and looks after his . Son Castillo lives [address] Spouse does not wander according to patient/daughter and has not attempted elopement. [facility]. Throughout this conversation, discussed the following: -Medicare and [employer] benefits, strongly encouraged patient to enroll in [facility] -Home health -In home care, private pay vs [facility] sponsored benefits Patient reports being 100%service connected. Plan: Discharge home, patient plans to drive himself home- encouraged patient to consider having his son pick him up, patient declines the need for HH at this time. Provided the senior resources book, patient states appreciation. SW team will plan to follow clinical course closely in case any DC needs or concerns arise. KATIE Fuller Discharge Planning/Care Management CM Discharge Assessment Start: 02/12/25 02:12 Freq: Status: Active Protocol: Document 02/12/25 14:29 NEREYDA (Rec: 02/12/25 14:32 NEREYDA [id number]) Discharge Planning Assessment Assigned Discharge KATIE Gibbons Global Project Manager DPOA/Assigned rush Solomon Designee Name Contact Information [phone] Advance Directives? No History Provided By Patient Prior Living House Arrangements Household Members spouse Type of Drives own vehicle transporation used prior to admit Independent with ADL Yes 's Is patient alert and Yes oriented? Comment Takes breaks due to SOB Caregiver for Yes Another Comment Patient cares for his Melissa, who has advanced dementia and is very TORRES MARTINEZ.
--- NOTE | 2025-02-12 15:19 | PT.IIE ---
Current Diagnoses Pneumonia, unspecified organism (02/12/25) Medical History (Last Updated 08/04/24 @ 10:08 by Elle Pelletier MD) Anticoagulated Bilateral edema of lower extremity Chronic atrial fibrillation COPD (chronic obstructive pulmonary disease) Interstitial lung disease Pacemaker Physical Therapy Inpatient Evaluation/Re-Eval M1 PT/OT-IP Prior Functional Status Start: 02/12/25 15:13 Freq: NEEDED Status: Active Protocol: Document 02/12/25 15:00 MB (Rec: 02/12/25 15:19 MB Desktop) Medical Review Prior Functional Status Medical History Yes Reviewed Diet/Fluid Regular Consistency Communication WNLs Mobility and Gait I Activities of Daily I Living and IADL's Prior Functional Lives with who is 99 y/o and also I, has Level (Other details daughter with her as pt is in hospital ) Social History Household Members spouse Living Arrangements House Number of Floors ( One Floor Floors) Number of Stairs To 1 step up to enter Enter/Railing? Employment Status Retired Additional Social No AD, I living History Comment M2 PT-IP Current Condition Start: 02/12/25 15:13 Freq: NEEDED Status: Active Protocol: Document 02/12/25 15:00 MB (Rec: 02/12/25 15:19 MB Desktop) Physical Therapy Current Condition Current Condition Evaluation Date 02/12/25 Treatment Diagnosis PNA and interstitial lung disease M3 PT-IP Subjective Start: 02/12/25 15:13 Freq: NEEDED Status: Active Protocol: Document 02/12/25 15:00 MB (Rec: 02/12/25 15:19 MB Desktop) Subjective Physical Therapy Visit Type Type Initial Evaluation Visit Start Time 15:00 Visit Stop Time 15:13 Number of DRAFTER Visits 0 Physical Therapy Visit Comments Patient Comments Pt sitting up on window seat and talking to nephew upon arrival M4 PT-IP Mobility and Gait Start: 02/12/25 15:13 Freq: NEEDED Status: Active Protocol: Document 02/12/25 15:00 MB (Rec: 02/12/25 15:19 MB Desktop) PT-Bed Mobility Assessment Rolling Level of Assist Independent Supine to Sit Supine to Sit Independent Sit to Supine Sit to Supine Independent Scooting Scooting to Edge of Independent Bed PT-Transfer Assessment Sit to and From Stand Sit to and from Independent Stand Equipment Transfer Assistive Gait Belt Device Transfers Transfer Destination Bed,Chair Transfer Technique Ambulation Transfer Ability Level of Assist Independent Gait Assessment Gait Gait Assistance Independent Required: Distance (Feet) 150 Assistive Devices Assistive Device Gait Belt Gait Deviations General Gait Pattern Within Normal Limits Comments Gait Comments Mild shuffling gait Stair Climbing Assessment Evaluation Level of Assist On Independent Stairs Devices Stair Climbing Left Railing,Right Railing Assistive Devices Technique/Endurance Stair Climbing Ascend and Descend Direction Stair Climbing Step Over Step Technique Number of Steps 3 Climbed Query Text: Stair Climbing Set # 1 Repetitions (reps) PT-Balance Assessment Sitting Balance and Reactions Static Sitting Normal Balance Ability Dynamic Sitting Normal Balance Ability Standing Balance and Reactions Static Standing Good Balance Ability Dynamic Standing Good Balance Ability M5 PT-IP Objective Assessments Start: 02/12/25 15:13 Freq: NEEDED Status: Active Protocol: Document 02/12/25 15:00 MB (Rec: 02/12/25 15:19 MB Desktop) Orientation Orientation/Cognition Level of Alertness Alert Orientation Name,Age,Birthday,Month,Date,Year,Day of Week,Place Language Function No Deficits Noted Ability Safety Awareness Understands Safety Issues Memory Description No Deficits Noted Gross Range of Motion Upper Extremity ROM Assessment Within Functional Limits Lower Extremity ROM Assessment Within Functional Limits Strength Upper Extremity Strength Assessment Within Functional Limits Lower Extremity Strength Assessment Within Functional Limits Coordination Assessment Gross Coordination Gross Coordination WNL Sensation Assessment Comments Sensation Comments NT Muscle Tone Muscle Tone WNL Yes M7 PT-IP Assessment and Plan Start: 02/12/25 15:13 Freq: NEEDED Status: Active Protocol: Document 02/12/25 15:00 MB (Rec: 02/12/25 15:19 MB Desktop) PT Summary Assessment and Plan Potential Rehabilitation Good Potential Status of Condition Evolving at Evaluation Summary Assessment Summary Pt is an 89 y/o male presenting with I bed mobility, transfers and gait today. He is A&O but does not know his medical diagnosis for adm. He lives at home with 99 y/o and he reports they are both I and have weekly xerox machine operator assistance. He drives and is looking forward a cruise with his nephew and family next month . He has no acute PT needs. He would like to sit up in chair and look outside and PT clears with nursing as call verde does not reach. Frequency of Treatment Frequency Of Discharge Treatment Recommendations To Nursing Amount of Assist Independent Needed Discharge Recommendations PT Discharge Home Recommendations Transportation Needs Private Vehicle at Discharge
[2025-02-12] MEDS: ONDANSETRON 4 MG/2 ML INJ IV (16:14)
[2025-02-12] MEDS: MAG HYDROX/ALUMINUM/SIMETH SUS 20 ML, LIDOCAINE VISCOUS 2% 15 ML PO (17:10)
--- NOTE | 2025-02-12 18:07 | DI.RAD.S_ITS ---
PROCEDURE: XR KUB INDICATIONS: SBO TECHNIQUE: One view of the abdomen acquired. COMPARISON: None. FINDINGS: Surgical changes and devices: Pacemaker leads are seen. Bowel: Bowel gas pattern is nonobstructive. Moderate to severe fecal stasis in the colon is seen. No gross pneumoperitoneum. Soft tissues: No suspicious abdominal calcifications. Visualized solid organ contours appear normal in size. Bones: No suspicious bony lesions. IMPRESSION: No evidence of bowel obstruction or gross pneumoperitoneum. Suggestion of moderate constipation and fecal impaction. Dictated by: Franco Lares M.D. on 02/12/2025 at 18:30 Approved by: Franco Lares M.D. on 02/12/2025 at 18:31
[2025-02-12] MEDS: SODIUM CHLORIDE 0.9% 1,000 ML 84 ML IV (21:39)
[2025-02-12] MEDS: METOCLOPRAMIDE 10 MG/2 ML INJ IV (22:04)
[2025-02-13 05:23] LABS: Add Manual Diff / Slide Review NO; Hematocrit 42.5 % (41-53); Hemoglobin 14.4 g/dL (13.5-17.5); Lymphocytes Absolute Auto 1500 /uL (1100-4500); Mean Corpuscular HGB Conc 33.8 % (30-36); Mean Corpuscular Hemoglobin 33.6 PG (26-34); Mean Corpuscular Volume 99.3 fL (80-100); Platelet Count 174 X10^3/uL (150-400)
[2025-02-13 05:46] LABS: Blood Urea Nitrogen 21 mg/dL (9-20); Calcium 8.7 mg/dL (8.4-10.2); Carbon Dioxide 24 mmol/L (22-32); Chloride 108 mmol/L (98-107); Estimated Glomerular Filt Rate > 60 mL/min (>60); Glucose 108 mg/dL (70-99); HEMOLYSIS < 15 (0-50); Potassium 4.1 mmol/L (3.4-5.1); Sodium 137 mmol/L (137-145)
--- NOTE | 2025-02-13 07:45 | P.PN_ITS ---
Subjective Subjective Date Patient Seen: 02/13/25 Interval history: He continues and has been consistently complaining of left upper quadrant pain when he eats. He has been on Protonix. General surgery will be consulted for possible EGD evaluation. The CT of the chest is again reviewed and reveals no significant abnormality in this location. His pneumonia could still be related or explanatory. Exam Vital Signs (past 8 hours): Oxygen Delivery Method Room Air Oxygen Flow Rate 2 Narrative Exam Narrative: He is alert and oriented x3. No apparent distress. Heart is regular rate and rhythm without murmur Lungs are clear to auscultation bilaterally Abdomen is soft, bowel sounds positive, nontender, no organomegaly. Objective Labs 02/13/25 04:30 02/13/25 04:30 Labs: Laboratory Results - last 24 hr 02/13/25 04:30 WBC 10.7 RBC 4.27 L Hgb 14.4 Hct 42.5 MCV 99.3 MCH 33.6 MCHC 33.8 RDW 14.1 Plt Count 174 Neut % (Auto) 78.7 H Lymph % (Auto) 13.6 L [place] % (Auto) 7.4 Eos % (Auto) 0.1 L Baso % (Auto) 0.2 Neut # (Auto) 8500 H Lymph # (Auto) 1500 [place] # (Auto) 800 Eos # (Auto) 0 Baso # (Auto) 0 Sodium 137 Potassium 4.1 Chloride 108 H Carbon Dioxide 24 BUN 21 H Creatinine 0.92 Estimated GFR > 60 BUN/Creatinine Ratio 22.8 H Glucose 108 H Calcium 8.7 PFSH Medical History (Updated 02/12/25 @ 00:16 by Cy Llanes MD) Interstitial lung disease COPD (chronic obstructive pulmonary disease) Bilateral edema of lower extremity Chronic atrial fibrillation Anticoagulated Pacemaker Social History household members: spouse Smoking Status: Former smoker Assessment & Plan Assessment & Plan narrative: Left upper quadrant abdominal pain, present on admission, active. -pain is present only when he eats. This has not responded consistently to treatment with PPI/GI cocktail after rechallenge today. -normal hemoglobin -general surgery consulted for possible EGD. NPO. Community-acquired pneumonia. Continue doxycycline and ceftriaxone. History of interstitial lung disease/COPD. No clear sign of exacerbation. Will continue to monitor respiratory status and continues on home prednisone. History of atrial fibrillation. Rate controlled. Resume home medication. Of note patient on chronic anticoagulation. DVT prophylaxis heparin subcu. CODE STATUS DNR/DNI Disposition likely home in 2 days Time-Based Coding :: [TOTAL MINUTES] spent with patient and on the chart (including review of chart, obtaining history, exam, reviewing outside data, placing orders, documenting exam and treatment plan, and counseling patient) on [DATE].
[2025-02-13 08:00] VITALS: BP 112/56; PULSE 63; RESP 19; TEMP 36.7; O2SAT 95
--- NOTE | 2025-02-13 09:35 | OT.IPNOTE ---
Spoke to pt. Pt states has been independent in the room, has no OT needs and therefore discharge OT eval orders.
--- NOTE | 2025-02-13 09:36 | OT.IPNOTE ---
Pt has no OT needs and therefore discharge OT eval orders.
[2025-02-13] MEDS: MAG HYDROX/ALUMINUM/SIMETH SUS 20 ML, LIDOCAINE VISCOUS 2% 15 ML PO ×3 (09:38→20:15)
[2025-02-13 12:00] VITALS: BP 88/64; PULSE 66; RESP 17; TEMP 36.4; O2SAT 93
--- NOTE | 2025-02-13 12:32 | CM.DPC ---
DCP Cont: Per MD, pt's fever resolved but continues to have abd pain with eating and will trial advancing diet and if pain continues then plan of likely EGD to r/o any further GI needs. Anticipates at least another day before stable for discharge pending progress. KATIE Wheeler
--- NOTE | 2025-02-13 14:26 | DI.US.S_ITS ---
PROCEDURE: US ABDOMEN LIMITED INDICATIONS: RUQ u/s, upper abd pain, nausea TECHNIQUE: Real-time scanning was performed of the abdominal and retroperitoneal organs, with image documentation. COMPARISON: None. FINDINGS: Liver: Increased liver echogenicity with posterior attenuation, most consistent with moderate to severe steatosis. Gallbladder: No gallstones. No wall thickening. No pericholecystic edema. Negative sonographic Marroquin's sign. Biliary ducts: Intrahepatic bile ducts are non-dilated. Extrahepatic bile duct caliber measures 6 mm. Normal is 6-7 mm or less in diameter, or 10 mm or less post-cholecystectomy. Pancreas: Not visualized due to overlying bowel gas. Miscellaneous: No free abdominal fluid. IMPRESSION: No acute abnormality. No gallbladder pathology. Moderate to severe hepatic steatosis. Dictated by: Joshua Parikh M.D. on 02/13/2025 at 15:45 Approved by: Joshua Parikh M.D. on 02/13/2025 at 15:46
--- NOTE | 2025-02-13 14:28 | DI.RAD.S_ITS ---
PROCEDURE: XR ACUTE ABDOMEN SERIES Four views INDICATIONS: upper abd pain, GERD, constipation, assess stool burden TECHNIQUE: One view chest and two views of the abdomen were acquired. COMPARISON: Chest x-ray 02/11/2025 FINDINGS: Chest: Moderately prominent chantelle moderately prominent pulmonary vessels and/or hilar lymph nodes mildly increased. Moderate bilateral diffuse predominantly perihilar and lower lobe peribronchial thickening, with patchy lower lobe opacities mildly increased, more than expected for expiratory result and bronchitis, viral infection, bronchopneumonia, asthma or other process should be considered. Follow-up suggested. Moderate calcifications of the aortic arch and descending aorta unchanged. Dual lead pacemaker left-sided battery pack unchanged. Degenerative changes of the thoracic spine unchanged. No pneumothorax, no pleural effusion, no lobar consolidation. Lungs are clear. Heart size is normal. No pleural effusions. No pneumoperitoneum. Abdomen: Moderate amount of stool throughout the colon and rectum in a pattern of constipation possible obstipation. No free gas, no abnormally dilated small bowel to suggest obstruction. Degenerative changes lower thoracic, lumbar spine and hips. Severe vascular calcifications. IMPRESSION: Moderate amount of stool throughout the abdomen most notably cecum, as sending, transverse colon and rectum, constipation possible obstipation. Peribronchial thickening and patchy opacities in the lungs as discussed above mildly progressed. Prominent [place]elle pulmonary vessels and/or hilar lymph nodes mildly increased. If symptoms persist or worsen, or there is high clinical suspicion of thoracic or abdominal abnormality, CT could be performed. Dictated by: Jean Pierre Herrera M.D. on 02/13/2025 at 15:20 Approved by: Jean Pierre Herrera M.D. on 02/13/2025 at 15:31
--- NOTE | 2025-02-13 14:30 | PM.CN.IH.1 ---
History of Present Illness Consult details Chief complaint: HEARTBURN, STOMACH PAIN, CANT EAT, NAUSEA Narrative: Surgery consult requested by Dr. Calzada. Patient admitted for pneumonia. C/O persistent nausea, LUQ pain, worse with eating. Patient states symptoms began 2 days ago. He describes this as a burning pain in the left upper quadrant. Several days ago they attended a birthday democrat and he experienced nausea and vomiting. Antacids provide some relief. He denies fatty food intolerance. He stopped eating Monegasque as spicy foods bother him. He is a nonsmoker and denies taking nonsteroidal anti-inflammatory drugs. He states he drinks 1 alcoholic beverage 4 times per week. He is currently constipated and has not had a bowel movement for 5 days. No prior history for upper endoscopy. A recent hospital meal with gravy caused nausea and he couldn't eat much of it. On PPI. Meds Home Medications and Allergies Home Medications ?Medication ?Instructions ?Recorded ?Confirmed ?Type furosemide 20 mg tablet (Lasix) 20 mg PO DAILY PRN edema #20 tabs 05/06/24 Rx ipratropium 0.5 mg-albuterol 3 mg 3 ml inhalation Q6H PRN shortness 08/04/24 Rx (2.5 mg base)/3 mL nebulization of breath or wheezing #180 mL soln nebulizer accessories #1 ea 08/04/24 Rx nebulizer and compressor #1 ea 08/04/24 Rx prednisone 20 mg tablet 40 mg (2 x 20 mg) PO DAILY #10 tabs 08/04/24 Rx cetirizine 10 mg capsule (All Day 10 mg PO BEDTIME allergies 02/12/25 02/12/25 History Allergy (cetirizine)) fluticasone propionate 50 2 spray intranasal DAILY allergies 02/12/25 02/12/25 History mcg/actuation nasal spray,suspension metoprolol succinate 50 mg 25 mg PO DAILY fast heart rate 02/12/25 02/12/25 History tablet,extended release 24 hr omeprazole 20 mg capsule,delayed 20 mg PO DAILY 02/12/25 02/12/25 History release pravastatin 20 mg tablet 20 mg PO BEDTIME high cholesterol 02/12/25 02/12/25 History tiotropium 2.5 mcg-olodaterol 2.5 2 inh inhalation DAILY COPD 02/12/25 02/12/25 History mcg/actuation mist for inhalation trazadone 50 mg PO BEDTIME sleep 02/12/25 02/12/25 History Allergies Allergy/AdvReac Type Severity Reaction Status Date / Time No Known Drug Allergies Allergy Verified 06/18/23 10:48 Exam Vital Signs (past 8 hours): - 02/13/25 07:00 02/13/25 08:00 02/13/25 12:00 Temperature 98.0 F 97.6 F Pulse Rate 63 66 Respiratory Rate 19 17 Blood Pressure 112/56 L 88/64 L Pulse Oximetry 95 93 Oxygen Delivery Method Room Air Oxygen Delivery Method Room Air Oxygen Flow Rate 2 Const Other: Sitting in chair with emesis bag in hand. Eyes Sclera: sclerae normal (non-icteric) Resp Effort & Inspection: normal respiratory effort and able to speak in complete sentences Other: equal BS Cardio Rate: regular rate GI Other: soft, distended, non-peritoneal, LUQ pain to palpation, no Marroquin's sign. Objective Labs 02/13/25 04:30 02/13/25 04:30 Labs: Laboratory Results - last 24 hr 02/13/25 04:30 WBC 10.7 RBC 4.27 L Hgb 14.4 Hct 42.5 MCV 99.3 MCH 33.6 MCHC 33.8 RDW 14.1 Plt Count 174 Neut % (Auto) 78.7 H Lymph % (Auto) 13.6 L [place] % (Auto) 7.4 Eos % (Auto) 0.1 L Baso % (Auto) 0.2 Neut # (Auto) 8500 H Lymph # (Auto) 1500 [place] # (Auto) 800 Eos # (Auto) 0 Baso # (Auto) 0 Sodium 137 Potassium 4.1 Chloride 108 H Carbon Dioxide 24 BUN 21 H Creatinine 0.92 Estimated GFR > 60 BUN/Creatinine Ratio 22.8 H Glucose 108 H Calcium 8.7 PFSH Medical History (Updated 02/13/25 @ 14:36 by Victor Manuel Haley MD) Interstitial lung disease COPD (chronic obstructive pulmonary disease) Bilateral edema of lower extremity Chronic atrial fibrillation Anticoagulated Pacemaker Social History household members: spouse Tobacco & Substance Use Smoking Status: Former smoker Assessment & Plan Assessment and plan (1) Nausea and vomiting: Qualifiers: Vomiting type: unspecified Qualified Code(s): R11.2 - Nausea with vomiting, unspecified Status: Acute (2) LUQ abdominal pain: Status: Acute Plan Check RUQ u/s to r/o biliary origin Check CMP, lipase Check AXR to evaluate stool burden If above unrevealing, consider EGD to r/o PUD, gastritis, hpylori Time-Based Coding :: [TOTAL MINUTES] spent with patient and on the chart (including review of chart, obtaining history, exam, reviewing outside data, placing orders, documenting exam and treatment plan, and counseling patient) on [DATE]. PROFEE Charge Codes Inpatient or Observation consultation: [id number]
[2025-02-13 15:59] LABS: Alanine Aminotransferase 14 IU/L (<50); Albumin 3.6 g/dL (3.5-5.0); Albumin Globulin Ratio 1.2 (1.0-2.8); Alkaline Phosphatase 44 U/L (38-126); Blood Urea Nitrogen 23 mg/dL (9-20); Calcium 8.5 mg/dL (8.4-10.2); Carbon Dioxide 23 mmol/L (22-32); Chloride 109 mmol/L (98-107); Estimated Glomerular Filt Rate > 60 mL/min (>60); Globulin 3.0 g/dL (1.7-4.1); Glucose 122 mg/dL (70-99); Lipase 31 U/L (23-300); Potassium 4.0 mmol/L (3.4-5.1); Sodium 137 mmol/L (137-145); Total Protein 6.6 g/dL (6.3-8.2)
[2025-02-13 16:00] VITALS: BP 117/49; PULSE 67; RESP 19; TEMP 36.6; O2SAT 94
[2025-02-13 16:04] LABS: HEMOLYSIS 58 (0-50)
[2025-02-13] MEDS: SODIUM CHLORIDE 0.9% 1,000 ML 84 ML IV (18:42)
[2025-02-13 20:02] VITALS: BP 121/54; PULSE 81; RESP 18; TEMP 36.1; O2SAT 95
[2025-02-13] MEDS: PRAVASTATIN 20 MG TABLET PO (20:14)
[2025-02-13] MEDS: HEPARIN 5,000 UNIT/ML VIAL 5000 UNIT SUBCUT (20:14)
[2025-02-13] MEDS: TRAZODONE 50 MG TABLET PO (20:14)
[2025-02-13] MEDS: DOXYCYCLINE HYCLATE 100 MG TABLET PO (20:14)
[2025-02-13] MEDS: SODIUM CHLORIDE 0.9% FLUSH 10 ML IV (20:15)
[2025-02-13 20:44] LABS: TSH w/ Reflex to FT4 4.74 uIU/mL (0.47-4.68)
[2025-02-13 21:09] LABS: Free T4, Direct Thyroxine 1.24 ng/dL (0.78-2.19)
[2025-02-14] VITALS (12 sets, daily range): BP systolic 86–152; BP diastolic 50–110; PULSE 61–91; RESP 16–24; TEMP 35.9–36.7; O2SAT 92–97
--- NOTE | 2025-02-14 | PATH_ITS ---
[facility] Accession Number: [id number] No. of containers..02 Tissue . 01 Material submitted: . PART A: gastrointestinal site - ANTRUM PART B: esophagus - ESOPHAGUS . 01 Clinical history: . B: ESOPHAGITIS BIOPSY, RULE OUT VALDOVINOS'S . 01 Diagnosis: A. STOMACH, ANTRUM, BIOPSY: Histologically unremarkable antral and oxyntic mucosa. Negative for Helicobacter organisms and intestinal metaplasia. . B. ESOPHAGUS, BIOPSY: Erosive esophagitis. Negative for intestinal metaplasia, intraepithelial eosinophilia, viral cytopathic effects, and fungal organisms. Negative for dysplasia and malignancy. MR 02/21/2025 1327 Local . 01 Electronically signed: . Naomi Howell DO, Pathologist NPI- [id number] . 01 Gross description: . Part A: ANTRUM: Received in formalin are 2 fragment(s) of garzon, soft tissue measuring 0.2 x 0.2 x 0.2 cm to 0.3 x 0.3 x 0.2 cm submitted entirely in 1 cassette(s) Part B: ESOPHAGUS: Received in formalin are multiple fragment(s) of garzon, soft tissue measuring 0.1 x 0.1 x 0.1 cm to 0.3 x 0.3 x 0.1 cm submitted entirely in 1 cassette(s) /GISSELL 02/17/2025 1846 Local . 01 Pathologist provided ICD-10: R10.13 . 01 CPT . 217465, 220180 Specimen Comment: A courtesy copy of this report has been sent to [facility] Pathology Performed at: [address] [address], [place], [place] [id number] MD Sid Garcia MD Phone: [phone]
--- NOTE | 2025-02-14 06:58 | PC.NURSE ---
Head Turning Machine Operator Summary-Patient tolerated 1 soap jeanne enema at 2130, moderate results of garzon/brown noah and flatus. Denies N/V or abdominal pain. NPO after MN.
[2025-02-14] MEDS: DOXYCYCLINE HYCLATE 100 MG TABLET PO ×2 (08:48→21:33)
[2025-02-14] MEDS: METOPROLOL ER 50 MG TABLET 25 MG PO (08:49)
[2025-02-14] MEDS: MAG HYDROX/ALUMINUM/SIMETH SUS 20 ML, LIDOCAINE VISCOUS 2% 15 ML PO (09:00)
[2025-02-14] MEDS: OLODATEROL INH (09:56)
[2025-02-14] MEDS: TIOTROPIUM BROMIDE INH (09:56)
[2025-02-14] MEDS: ALBUTEROL/IPRATROPIUM 3 ML AMPUL INH (10:43)
[2025-02-14] MEDS: LACTATED RINGERS 1,000 ML 42 ML IV (11:44)
--- NOTE | 2025-02-14 14:04 | PC.NURSE ---
MD Calzada made aware of elevated BP. Pt reports he is nervous about going to the OR. MD will review.
--- NOTE | 2025-02-14 14:18 | PM.PREOP ---
Pre-operative Note Interval Note History & Physical reviewed/Exam performed by Physician: Yes Changes to H&P: No ASA Class (for procedural sedation): II
--- NOTE | 2025-02-14 14:46 | PM.OP.EGD ---
Operative Date/Time/Diagnoses Date of procedure: 02/14/25 Time of procedure: 14:46 Pre-op diagnosis: Nausea and vomiting Post-op diagnosis: other (Nausea and vomiting, LA Grade C esophagitis, biopsies to r/o Nowak's) Procedure & Clinicians Study performed: EGD with biopsy Same procedure(s) as scheduled: Yes Indications: 89yo M with intractable vomiting Surgeon: Victor Manuel Haley Anesthesia Type: MAC +/- Procedure Notes SCOAP/Timeout: Performed Procedure in detail: Informed consent was obtained. The procedure, its risks, benefits, and alternatives were discussed. The patient was placed in the left lateral decubitus position. After the patient was sedated, the video endoscope was inserted into the oropharynx and guided under direct vision into the esophagus, stomach, and duodenum. The duodenal bulb and second portion were unremarkable. The scope was withdrawn to the stomach and retroflexed. There was no increased fluid, food or secretions in the upper gastrointestinal tract. There was a 2cm hiatal hernia. LA Grade D esophagitis noted, biopsies taken to r/o Nowak's. Three long columns extending >10mm proximally involving >75% of circumference. There was very minimal, nonspecific, patchy antral erythema. Biopsies were obtained for Helicobacter pylori. No erosions or ulcers. The scope was withdrawn to the esophagus. The Z-line and gastroesophageal junction were located at about 38 cm. The patient tolerated the procedure very well. The patient was then transferred to the recovery area in good condition. There were no apparent complications. Findings: LA Grade D esophagitis, biopsies taken to r/o Nowak's 2cm hiatal hernia Mild antral gastritis, biopsies taken to r/o hpylori Findings: gastritis, hiatal hernia and other findings (esophagitis) Specimen(s): other (antral and esophageal biopsies) Complications: none Impression: LA Grade D espohagitis, r/o Nowak's 2cm hiatal hernia Mild antral gastritis Post-procedure Recommendations: Continue medication(s) and Will call with biopsy results Plan for aftercare: PACU to [facility] Follow up: as needed Disposition: PACU
--- NOTE | 2025-02-14 16:47 | PM.PN.1 ---
Subjective Subjective Date Patient Seen: 02/14/25 Time Patient Seen: 16:47 Interval history: The EGD today showed esophagitis and gastritis. Symptoms were rather mild apparently. He is asking to eat and we will challenge him again with oral intake to see if it again flares his left upper quadrant pain. He had been self restricting on eating because of that. He is up and walking about. He was very impacted/constipated and required digital disimpaction last night. His TSH is 4.74 so hypothyroidism is likely contributing. He will be started on levothyroxine. Exam Vital Signs (past 8 hours): - 02/14/25 11:38 02/14/25 14:48 02/14/25 14:50 Temperature 98.1 F Pulse Rate 88 83 84 Respiratory Rate 20 16 24 Blood Pressure 115/73 91/50 L 95/71 Pulse Oximetry 94 94 95 Oxygen Delivery Method Room Air Room Air Room Air Oxygen Flow Rate 02/14/25 14:55 02/14/25 15:00 02/14/25 15:05 Temperature Pulse Rate 81 81 83 Respiratory Rate 20 16 16 Blood Pressure 86/68 L 86/69 L 108/72 Pulse Oximetry 96 94 95 Oxygen Delivery Method Room Air Room Air Room Air Oxygen Flow Rate 02/14/25 15:10 02/14/25 15:15 02/14/25 16:16 Temperature 97.8 F Pulse Rate 83 86 91 H Respiratory Rate 20 20 20 Blood Pressure 123/78 123/79 145/79 H Pulse Oximetry 95 97 96 Oxygen Delivery Method Room Air Room Air Oxygen Flow Rate 0 Oxygen Delivery Method Room Air Oxygen Flow Rate 0 Narrative Exam Narrative: Up and walking around. No apparent distress Oriented x3 Heart is regular rate and rhythm without murmur Lungs are clear to auscultation bilaterally Extremities have no ankle edema Abdomen is tender in the epigastric area. Objective Labs 02/13/25 04:30 02/13/25 15:30 Labs: Laboratory Results - last 24 hr 02/13/25 04:30 TSH 4.74 H Free T4 1.24 PFSH Medical History (Updated 02/13/25 @ 19:40 by Victor Manuel Haley MD) Interstitial lung disease COPD (chronic obstructive pulmonary disease) Bilateral edema of lower extremity Chronic atrial fibrillation Anticoagulated Pacemaker Social History household members: spouse Smoking Status: Former smoker Assessment & Plan Assessment & Plan narrative: Left upper quadrant abdominal pain, present on admission, active. -pain is present only when he eats. No improvement with GI cocktail or PPI. -normal hemoglobin -general surgery consulted and did EGD showing esophagitis and gastritis. -x-rays showed severe obstipation which is definitely contributing and may be the cause of the pain. -he will be rechallenge with oral intake and if he does well will go home in the morning. Community-acquired pneumonia. Continue doxycycline and ceftriaxone. History of interstitial lung disease/COPD. No clear sign of exacerbation. Will continue to monitor respiratory status and continues on home prednisone. History of atrial fibrillation. Rate controlled. Resumed home medication. Of note patient on chronic anticoagulation. DVT prophylaxis heparin subcu. CODE STATUS DNR/DNI Disposition likely home in 1 day. Time-Based Coding :: [TOTAL MINUTES] spent with patient and on the chart (including review of chart, obtaining history, exam, reviewing outside data, placing orders, documenting exam and treatment plan, and counseling patient) on [DATE].
[2025-02-14] MEDS: DOCUSATE 100 MG CAPSULE PO (21:32)
[2025-02-14] MEDS: METOCLOPRAMIDE 10 MG/2 ML INJ IV (21:32)
[2025-02-14] MEDS: SENNOSIDES 8.6 MG TABLET PO (21:32)
[2025-02-14] MEDS: TRAZODONE 50 MG TABLET PO (21:33)
[2025-02-14] MEDS: SODIUM CHLORIDE 0.9% FLUSH 10 ML IV (21:33)
[2025-02-14] MEDS: PRAVASTATIN 20 MG TABLET PO (21:33)
[2025-02-14] MEDS: HEPARIN 5,000 UNIT/ML VIAL 5000 UNIT SUBCUT (21:34)
[2025-02-15] MEDS: LEVOTHYROXINE 50 MCG TABLET PO ×2 (06:59→09:24)
--- NOTE | 2025-02-15 07:11 | P.PN_ITS ---
Subjective Subjective Date Patient Seen: 02/15/25 Time Patient Seen: 07:11 Interval history: No n/v overnight Tolerating regular diet Wants to go home to take care of his Exam Vital Signs (past 8 hours): Oxygen Delivery Method Room Air Oxygen Flow Rate 0 Const Orientation: alert, awake and oriented x3 Resp Effort & Inspection: normal respiratory effort Cardio Rate: regular rate GI Other: soft, non-peritoneal exam Extrem Other: Without pitting edema Objective Labs 02/13/25 04:30 02/13/25 15:30 [facility] Medical History (Updated 02/15/25 @ 07:14 by Victor Manuel Haley MD) Interstitial lung disease COPD (chronic obstructive pulmonary disease) Bilateral edema of lower extremity Chronic atrial fibrillation Anticoagulated Pacemaker Social History household members: spouse Smoking Status: Former smoker Assessment & Plan Assessment and plan (1) Constipation: Status: Acute (2) Nausea and vomiting: Qualifiers: Vomiting type: unspecified Qualified Code(s): R11.2 - Nausea with vomiting, unspecified Status: Acute (3) Hypothyroidism: Status: Acute (4) Esophagitis determined by endoscopy: Status: Acute Assessment & Plan narrative: Constipation Likely cause of n/v Symptom improvement after rectal disimpaction Did not receive Golytely cleanout Check AXR to monitor stool burden Will likely require ongoing substantial po cathartic/enema/golytely treatment to clear his stool burden Recommend Mineral oil 30cc daily to help lubricate dry impacted stool throughout colon until AXR demonstrates resolution of stool burden Hypothyroidism contributing, on synthroid Esophagitis LA Grade D esophagitis Biopsies pending to r/o Nowak's Plan BID PPI, carafate GERD precautions, elevate HOB, avoid eating before bedtime, frequent smaller meals rather than large meals, avoid tight fitting garments, avoid reflux foods Will need repeat endoscopy in 8 weeks to monitor healing Antral biopsy pending to r/o hpylori Time-Based Coding :: [TOTAL MINUTES] spent with patient and on the chart (including review of chart, obtaining history, exam, reviewing outside data, placing orders, documenting exam and treatment plan, and counseling patient) on [DATE]. [employer] Document charge(s): Yes Charge Codes Subsequent inpatient/observation care: [id number]
[2025-02-15 08:00] VITALS: BP 132/60; PULSE 80; RESP 20; TEMP 36.1; O2SAT 96
--- NOTE | 2025-02-15 08:00 | DI.RAD.S_ITS ---
PROCEDURE: XR ABDOMEN MIN 2V INDICATIONS: f/u exam to assess stool burden after enemas TECHNIQUE: 2 views of the abdomen were acquired. COMPARISON: [facility], CR, XR ACUTE ABDOMEN SERIES, 02/13/2025, 14:28. FINDINGS: Surgical changes and devices: Pacemaker leads are present. Bowel: No pneumoperitoneum. The bowel gas pattern is normal. Mild stool burden in the left colon. Soft tissues: No masses; visualized solid organ contours appear normal in size. No suspicious abdominal calcifications. Bones: No suspicious bony abnormalities. IMPRESSION: Non-obstructive bowel gas pattern. Mild stool burden in the left colon. Approved by: Edison Blair M.D. on 02/15/2025 at 9:20
[2025-02-15] MEDS: DOXYCYCLINE HYCLATE 100 MG TABLET PO (09:24)
[2025-02-15] MEDS: METOPROLOL ER 50 MG TABLET 25 MG PO (09:24)
[2025-02-15] MEDS: SENNOSIDES 8.6 MG TABLET PO (09:24)
[2025-02-15] MEDS: OLODATEROL INH (09:25)
[2025-02-15] MEDS: TIOTROPIUM BROMIDE INH (09:25)
--- NOTE | 2025-02-15 09:33 | P.DS_ITS ---
History of Present Illness History of Present Illness Chief complaint: HEARTBURN, STOMACH PAIN, CANT EAT, NAUSEA Narrative: From H&P: 89-year-old male with medical history of atrial fibrillation with pacemaker placement on chronic anticoag, interstitial lung disease/COPD, not oxygen dependent, hyperlipidemia, GERD presents with complaint of nausea, heartburn and poor oral intake. Per the patient report, has been having a cough over the last 2 weeks. The patient states that his cough is relatively dry but he also has some GI symptoms of epigastric discomfort along with poor oral intake. The patient was nauseous but not having any vomiting. The patient also denies any fever, chills, chest pain or shortness of breath. In the emergency room, the patient was hemodynamically stable. Lab were relatively benign with a normal WBC. Lactate was normal. Troponin were negative x 2. X-ray showed left upper lung field passing concerning for infection. The patient was given GI cocktail along with doxycycline and IV ceftriaxone. The patient was saturating in the low 90s on room air. Pacemaker was interrogated. Discharge Providers Provider Date of admission: 02/12/25 01:16 Discharge Date: 02/15/25 Primary care physician: Doctor Galileo MD Consults: 02/12/25 03:18 Consult to Occupational Therapy Evaluate & Treat Comment: Physician Instructions: Evaluate and treat Consult to Physical Therapy Evaluate & Treat Comment: Physician Instructions: Evaluate and Treat 02/13/25 13:50 Consult to General Surgery Routine Comment: Consulting Provider: Victor Manuel Haley Reason for consultation: Abdominal pain Has provider been notified: Yes Discharge provider: Sky Farrell MD Summary Hospital Course Discharge Diagnosis: 1. Left upper quadrant abdominal pain with esophagitis and gastritis on endoscopy, present on admission, improved. -pain is present only when he eats. No improvement with GI cocktail or PPI. -normal hemoglobin -general surgery consulted and did EGD showing esophagitis and gastritis. -he will be rechallenge with oral intake and if he does well will go home in the morning. 2. Community-acquired pneumonia. Improved. 3. Interstitial lung disease/COPD. No clear sign of exacerbation. Will continue to monitor respiratory status and continues on home prednisone. 4. Atrial fibrillation. Rate controlled. Resumed home medication. Of note patient on chronic anticoagulation. Hypothyroidism, new and active. Started on Synthroid Hospital Course: The patient was admitted for abdominal pain. He was noted to have an elevated TSH and was started on Synthroid. The patient was seen by surgery EGD on February 14 revealing LA grade C esophagitis, with biopsies obtained to rule out Nowak's. Recommendations were for Carafate as well as PPI and repeat EGD in 2 months. The patient had improvement of symptoms and was stable for discharge on February 15. There was a question of pneumonia, and he was given antibiotics while in the hospital. He will be discharged without antibiotics given that he was received several days of these. He had no residual cough, or shortness a breath. CT scan did find a 6 mm right upper lobe nodule with a repeat CT scan in 12-18 months recommended. Status at Discharge Cognitive/behavioral status at discharge: oriented Functional status at discharge: independent ambulation Overall status at discharge: patient is back to baseline Time Spent with Patient Time spent: Greater than 30 minutes Exam Vital Signs (past 8 hours): Oxygen Delivery Method Room Air Oxygen Flow Rate 0 Narrative Exam Narrative: NAD, alert and oriented. Fluent speech. Lungs are clear, normal rate and effort. Heart is regular, no murmur gallop or rub. Abdomen is soft, non distended. Extremities are free of edema. Objective Imaging Multiple studies:: Radiologist's impression: Abdomen x-ray: Non-obstructive bowel gas pattern. Mild stool burden in the left colon. Chest and abdomen x-ray: IMPRESSION: Moderate amount of stool throughout the abdomen most notably cecum, as sending, transverse colon and rectum, constipation possible obstipation. Peribronchial thickening and patchy opacities in the lungs as discussed above mildly progressed. Prominent chantelle pulmonary vessels and/or hilar lymph nodes mildly increased. If symptoms persist or worsen, or there is high clinical suspicion of thoracic or abdominal abnormality, CT could be performed. Abdominal ultrasound: No acute abnormality. No gallbladder pathology. Moderate to severe hepatic steatosis. KUB x-ray: No evidence of bowel obstruction or gross pneumoperitoneum. Suggestion of moderate constipation and fecal impaction. Chest x-ray: Left upper lung field opacity concerning for infection. Recommend follow-up radiograph to ensure resolution. Chest CT: Bronchial wall thickening concerning for chronic bronchitis. Stable scattered bilateral lung peripheral interstitial thickening. Stable 6 millimeter right upper lobe nodule. Consider optional follow-up CT scan in 12-18 months based on criteria outlined below. Labs 02/13/25 04:30 02/13/25 15:30 [facility] Medical History (Updated 02/15/25 @ 07:14 by Victor Manuel Haley MD) Interstitial lung disease COPD (chronic obstructive pulmonary disease) Bilateral edema of lower extremity Chronic atrial fibrillation Anticoagulated Pacemaker Social History household members: spouse Smoking Status: Former smoker Discharge Assessment & Plan Assessment and Plan Assessment: 1. Left upper quadrant abdominal pain with esophagitis and gastritis on endoscopy, present on admission, improved. -pain is present only when he eats. No improvement with GI cocktail or PPI. -normal hemoglobin -general surgery consulted and did EGD showing esophagitis and gastritis. -he will be rechallenge with oral intake and if he does well will go home in the morning. 2. Community-acquired pneumonia. Improved. Plan of Treatment: Discharge home on PPI b.i.d. and Carafate for 10-20 days. In addition patient was asked to see his PCP and recommendations are for repeat EGD in [address] scan of the chest in 12-18 months. Biopsies are pending of the esophagus to rule out Nowak's. Discharge Plan Discharge Plan Patient Disposition: Home Provider Discharge Comment: Eating well, stable for discharge home. Discharge orders & Medications Prescriptions: New levothyroxine [Synthroid] 50 mcg Tablet 50 mcg PO DAILY@0600 Qty: 30 0RF pantoprazole [Protonix] 40 mg tablet,delayed release (DR/EC) 40 mg PO BID Qty: 60 1RF sucralfate [Carafate] 100 mg/mL suspension 10 ml PO QID Qty: 400 1RF Rx Instructions: swish in mouth and swallow; use after food/drink Continued furosemide [Lasix] 20 mg tablet 20 mg PO DAILY PRN (Reason: edema) Qty: 20 0RF (DME) nebulizer and compressor Device See Rx Instructions .Route Qty: 1 0RF Rx Instructions: As directed (DME) nebulizer accessories Kit See Rx Instructions .Route Qty: 1 0RF Rx Instructions: As directed ipratropium-albuterol 0.5 mg-3 mg(2.5 mg base)/3 mL solution for nebulization 3 ml inhalation Q6H PRN (Reason: shortness of breath or wheezing) Qty: 180 0RF All Day Allergy (cetirizine) 10 mg capsule 10 mg PO BEDTIME metoprolol succinate 50 mg tablet extended release 24 hr 25 mg PO DAILY pravastatin 20 mg tablet 20 mg PO BEDTIME trazadone tablet 50 mg PO BEDTIME fluticasone propionate 50 mcg/actuation spray,suspension 2 spray intranasal DAILY Rx Instructions: administer into each nostril tiotropium-olodaterol 2.5-2.5 mcg/actuation mist 2 inh inhalation DAILY Discontinued prednisone 20 mg tablet 40 mg PO DAILY Qty: 10 0RF omeprazole 20 mg capsule,delayed release(DR/EC) 20 mg PO DAILY Follow up/Referrals: Lylaaneous,Doctor, [Primary Care Provider, Medical] Diet/Activity/Treatments Diet: Diet as Tolerated Diet comment: Fiber intake will help with constipation. Skin/Wound/Dressing Care Report to your healthcare provider any signs of infection, such as:: chills, fever, night sweats and increased pain Visit Report/Discharge Packet Instructions: Fiber Recipes, DI for Heart Failure, DI for Pneumonia -- Adult, DI for Gastritis, DI for Hiatal Hernia, DI for Esophagitis, EGD Discharge Instructions Stand Alone Forms: Patient Portal/API, Stroke Signs & Symptoms Discharge Data Primary Care Provider: Doctor Galileo
--- NOTE | 2025-02-15 11:25 | CM.DPC ---
DCP Cont. Reviewed EMR and team rounds for pt's medical status and updates. Pt has been medically cleared for home d/c. Family will transport. No further CM d/c needs indicated at this time.
== END 2025-02-15 10:25 | disposition home or self-care (01) | DRG 391 ==
LOC: ED 02-12 01:16 → AC 02-12 01:18
PROVIDERS: Surgery; Admitting Provider Internal Medicine; Emergency Provider Emergency Medicine; Referring Provider Emergency Medicine; Visit Provider Internal Medicine
PROC: 0DJ08ZZ Inspection of Upper Intestinal Tract, Via Natural or Artificial Opening Endoscopic (ICD-10-PCS; principal; 2025-02-14 12:30)
DX: K20.90 Esophagitis, unspecified without bleeding (principal); J18.9 Pneumonia, unspecified organism; J44.0 Chronic obstructive pulmonary disease with (acute) lower respiratory infection; I48.91 Unspecified atrial fibrillation; K59.00 Constipation, unspecified; R11.2 Nausea with vomiting, unspecified; K29.70 Gastritis, unspecified, without bleeding; E03.9 Hypothyroidism, unspecified; R91.1 Solitary pulmonary nodule; E78.5 Hyperlipidemia, unspecified; K21.9 Gastro-esophageal reflux disease without esophagitis; Z95.0 Presence of cardiac pacemaker; Z79.01 Long term (current) use of anticoagulants; Z66 Do not resuscitate; Z87.891 Personal history of nicotine dependence
CPT/HCPCS: 36415; 43239; 71045; 74018; 74019; 74022; 76705; 80048; 80053; 82550; 83605; 83690; 83735; 83880; 84439; 84443; 84484; 85025; 85610; 85730; 87040; 93005; 93010; 96365; 96375; 97161; 99231; 99232; 99285; 99291; J0696; J1644; J2405; J2470; J2704; J2765

== ENCOUNTER 2025-05-08 09:52 | Emergency (ER) | payer OTHER, SELFPAY ==
[2025-02-12 02:12] VITALS: BMI 33.6
[2025-05-08 09:56] VITALS: BP 96/66; PULSE 74; RESP 18; TEMP 36.4; O2SAT 95; BMI 34.0
--- NOTE | 2025-05-08 10:12 | DI.RAD.S_ITS ---
PROCEDURE: XR SHOULDER RT 3V INDICATIONS: unable to move shoulder without pain x 1 month no trauma TECHNIQUE: 3 views of the shoulder were acquired. COMPARISON: None. FINDINGS: Moderate degenerative changes right acromioclavicular and glenohumeral joints with joint space narrowing and osteophytes. No radiographic evidence of displaced fracture, dislocation, abnormal calcification or high attenuation foreign body. IMPRESSION: Moderate degenerative changes as discussed above. If symptoms persist or worsen, or there is high clinical suspicion of abnormality, MRI could be performed. Dictated by: Jean Pierre Herrera M.D. on 05/08/2025 at 10:38 Approved by: Jean Pierre Herrera M.D. on 05/08/2025 at 10:40
--- NOTE | 2025-05-08 11:36 | ED_ITS ---
HPI - Extremity Problem General Chief complaint: Extremity Problem,Nontraumatic Stated complaint: right arm injury Time Seen by Provider: 05/08/25 11:09 Source: patient Mode of arrival: Ambulatory History of Present Illness HPI Narrative: Mr. Farrell is a very pleasant 89-year-old male with a past medical history of COPD, AFib, pacemaker, hypothyroidism, hyperlipidemia presents to the emergency department for right shoulder pain x 1.5 months. Patient denies any known injury or inciting movement however does state that he is right-hand dominant and did lots of physical labor throughout his life. Patient describes pain on the anterior AC joint region and also with any movement of the right shoulder. He is still able to move the right shoulder fully with abduction above the head however he has significant pain with this and his position of comfort is with the arm against the side of the body flexed at the elbow. States that the pain occasionally radiates down to the elbow. No numbness tingling or weakness of the hands. No direct trauma. No blood thinners. No fevers or chills. Denies prior injury to the shoulder. Related Data Home Medications ?Medication ?Instructions ?Recorded ?Confirmed cetirizine 10 mg capsule (All Day 10 mg PO BEDTIME all ergies 02/12/25 02/12/25 Allergy (cetirizine)) fluticasone propionate 50 2 spray intranasal DAILY all ergies 02/12/25 02/12/25 mcg/actuation nasal spray,suspension metoprolol succinate 50 mg 25 mg PO DAILY fast heart r ate 02/12/25 02/12/25 tablet,extended release 24 hr pravastatin 20 mg tablet 20 mg PO BEDTIME high choles terol 02/12/25 02/12/25 tiotropium 2.5 mcg-olodaterol 2.5 2 inh inhalation [place] LY COPD 02/12/25 02/12/25 mcg/actuation mist for inhalation trazadone 50 mg PO BEDTIME sleep 02/1202/12/25 Previous Rx's ?Medication ?Instructions ?Recorded furosemide 20 mg tablet (Lasix) 20 mg PO DAILY PRN cynthia ma #20 tabs 05/06/24 ipratropium 0.5 mg-albuterol 3 mg 3 ml inhalation Q6H PRN shortness 08/04/24 (2.5 mg base)/3 mL nebulization of breath or wheezing #180 mL soln nebulizer accessories #1 ea 08/04/24 nebulizer and compressor #1 ea 08/04/24 levothyroxine 50 mcg tablet 50 mcg PO DAILY@0600 #30 t abs 02/15/25 (Synthroid) pantoprazole 40 mg tablet,delayed 40 mg PO BID #60 tab s 02/15/25 release (Protonix) sucralfate 100 mg/mL oral 10 ml PO QID #400 mL 5 suspension (Carafate) Allergies Allergy/AdvReac Type Severity Reaction Status Date / Time No Known Drug Allergies Allergy Verified 05/08/25 09:56 Review of Systems Review of Systems ROS Unobtainable: All systems reviewed & are unremarkable except as noted in HPI and below Patient History Medical History Interstitial lung disease COPD (chronic obstructive pulmonary disease) Bilateral edema of lower extremity Chronic atrial fibrillation Anticoagulated Pacemaker Social History household members: spouse tobacco type: cigarettes alcohol intake frequency: 0-2 drinks per day Alcohol type: hard liquor Exam Narrative Exam Narrative: GENERAL: 89 year old patient appears stated age. Well-developed patient, in no acute distress. HEAD: Atraumatic. Normocephalic. EYES: No scleral icterus. No injection or drainage. NECK: Trachea midline. Cervical ROM intact. No midline cervical tendernes. CARDIOVASCULAR: Regular rate RESPIRATORY: ?Nonlabored respirations. ?Speaking in clear, full sentences. EXTREMITIES: 2+ radial pulses BL. Patient has tenderness to palpation of the right acromioclavicular joint and the proximal humerus. No deformities. Full abduction and adduction intact but with pain. Pain with flexion-extension of shoulder. No focal bony tenderness over the bilateral elbows, wrists. Sensation intact to light touch in the distribution of the medial, radial, ulnar nerves bilaterally. NEURO: AOx3. ?Clear speech. ?Moves all 4 extremities appropriately. SKIN: No rash or erythema of visible areas Initial Vital Signs Initial Vital Signs: Vital Signs Temperature 97.6 F 05/08/25 09:56 Pulse Rate 74 05/08/25 09:56 Respiratory Rate 18 05/08/25 09:56 Blood Pressure 96/66 05/08/25 09:56 Pulse Oximetry 95 05/08/25 09:56 Oxygen Delivery Method Room Air 05/08/25 09:56 Course Orders Ordered: ED Orders 05/08/25 10:12 XR shoulder RT 2+ views Stat Discontinued Medications Ibuprofen (Ibuprofen 400 Mg Tablet) 400 mg PO NOW ONE Stop: 05/08/25 11:45 Last Admin: 05/08/25 11:55 Dose: 400 mg Lidocaine (Lidocaine 5% Patch) 1 each TOP NOW ONE Stop: 05/08/25 11:45 Last Admin: 05/08/25 11:54 Dose: 1 each Vital Signs Vital signs: Vital Signs - 8 hr 05/08/25 09:56 05/08/25 12:05 Temperature 97.6 F Pulse Rate 74 74 Respiratory Rate 18 18 Blood Pressure 96/66 98/68 Pulse Oximetry 95 95 Oxygen Delivery Method Room Air Room Air MDM - Extremity (Nontraumatic) Medical Records Attestation: I reviewed the patient's medical records. Imaging Data Right Shoulder XR: Radiologist's Impression: PROCEDURE: XR SHOULDER RT 3V INDICATIONS: unable to move shoulder without pain x 1 month no trauma TECHNIQUE: 3 views of the shoulder were acquired. COMPARISON: None. FINDINGS: Moderate degenerative changes right acromioclavicular and glenohumeral joints with joint space narrowing and osteophytes. No radiographic evidence of displaced fracture, dislocation, abnormal calcification or high attenuation foreign body. IMPRESSION: Moderate degenerative changes as discussed above. If symptoms persist or worsen, or there is high clinical suspicion of abnormality, MRI could be performed. Dictated by: Jean Pierre Herrera M.D. on 05/08/2025 at 10:38 Approved by: Jean Pierre Herrera M.D. on 05/08/2025 at 10:40 [facility] Narrative Medical decision making narrative: 89-year-old male with a past medical history of COPD, AFib, pacemaker, hypothyroidism, hyperlipidemia presents to the emergency department for right shoulder pain x 1.5 months. Differential diagnosis includes but is not limited to sprain, strain, fracture, dislocation, arthritis, adhesive capsulitis, etc. On exam the patient is in no acute distress, nontoxic appearing, vital signs appropriate. Patient has tenderness to palpation of the AC joint in the proximal humerus, no deformities, he does still have intact range of motion but with discomfort. 2+ radial pulses bilaterally, sensation intact to light touch bilaterally, he is neurovascularly intact. X-ray obtained in triage reveals moderate degenerative changes of the right acromioclavicular and glenohumeral joints with joint space narrowing and osteophytes. Discussed supportive care with the patient including heat therapy, stretching, topical Lidoderm/Voltaren, ibuprofen and acetaminophen, follow up with PCP and Orthopedics as I do believe he would benefit from physical therapy and further management. Patient verbalized understanding of all information and is happy with this plan. He is ambulatory stable for discharge home. Discharge Plan Departure Patient Disposition: Home Clinical Impression: Degenerative arthritis of right shoulder region Qualifiers: Osteoarthritis type: unspecified Qualified Code(s): M19.011 - Primary osteoarthritis, right shoulder Instructions: DI for Shoulder Pain Activity Restrictions/Additional Instructions: Dear Mr. Farrell, Thank you for coming to the emergency department. Today you were evaluated for right shoulder pain. Your right shoulder x-ray reveals moderate degenerative changes, joint space narrowing and bone spurs. Please follow up with [facility] for further management of this condition. It is very important to attempt to stretch the shoulder every day to prevent the development of frozen shoulder. Please use [id number] ibuprofen (advil/motrin) in addition to acetaminophen (tylenol) for pain. You may also find that applying topical Voltaren arthritis gel, numbing patches, or heat may help the shoulder. Propping yourself up at night and taking pain medicine before bed can help with sleep. Please take Ibuprofen (Motrin/Advil) or Acetaminophen (Tylenol) for pain. These are available over the counter. You may take Ibuprofen 400 mg every 8 hours with food for pain. You may also take Acetaminophen 650 mg every 4-6 hours for pain. Do not exceed 3000 mg of Tylenol a day as this can cause liver damage. Do not drink alcohol with either of these medications. Please follow up with your primary care doctor within the next 2-3 days for ER follow-up. (If you do not have a PCP you can call [phone]. ?to schedule an appointment with an [facility] Primary Care Provider) IF YOU DEVELOP ANY NEW OR WORSENING SYMPTOMS, RETURN TO THE ER! Please read the attached instructions, they highlight more specific treatments and interventions for you at home. Thank you for letting me participate in your care, Alilson C. Allen, PA-C Prescriptions: No Action furosemide [Lasix] 20 mg tablet 20 mg PO DAILY PRN (Reason: edema) Qty: 20 0RF (DME) nebulizer and compressor Device See Rx Instructions .Route Qty: 1 0RF Rx Instructions: As directed (DME) nebulizer accessories Kit See Rx Instructions .Route Qty: 1 0RF Rx Instructions: As directed ipratropium-albuterol 0.5 mg-3 mg(2.5 mg base)/3 mL solution for nebulization 3 ml inhalation Q6H PRN (Reason: shortness of breath or wheezing) Qty: 180 0RF All Day Allergy (cetirizine) 10 mg capsule 10 mg PO BEDTIME metoprolol succinate 50 mg tablet extended release 24 hr 25 mg PO DAILY pravastatin 20 mg tablet 20 mg PO BEDTIME trazadone tablet 50 mg PO BEDTIME fluticasone propionate 50 mcg/actuation spray,suspension 2 spray intranasal DAILY Rx Instructions: administer into each nostril tiotropium-olodaterol 2.5-2.5 mcg/actuation mist 2 inh inhalation DAILY levothyroxine [Synthroid] 50 mcg Tablet 50 mcg PO DAILY@0600 Qty: 30 0RF pantoprazole [Protonix] 40 mg tablet,delayed release (DR/EC) 40 mg PO BID Qty: 60 1RF sucralfate [Carafate] 100 mg/mL suspension 10 ml PO QID Qty: 400 1RF Rx Instructions: swish in mouth and swallow; use after food/drink Referrals: Miscellaneous,MD Feliciano [Primary Care Provider, Medical] Jose J Leal MD [Physician, Orthopedic Surgery] Referral Note: R shoulder arthritis Stand Alone Forms: Patient Portal/API
[2025-05-08] MEDS: LIDOCAINE 5% PATCH 1 EACH TOP (11:54)
[2025-05-08] MEDS: IBUPROFEN 400 MG TABLET PO (11:55)
[2025-05-08 12:05] VITALS: BP 98/68; PULSE 74; RESP 18; O2SAT 95
== END 2025-05-08 12:13 | disposition home or self-care (01) ==
PROVIDERS: Emergency Provider Physician Assistant
DX: M19.011 Primary osteoarthritis, right shoulder (principal)
CPT/HCPCS: 73030; 99283